=== PATIENT | female | born 2005 | race Caucasian/White ===

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

== ENCOUNTER → 2024-12-05 | Outpatient (CLI) | payer MEDICAID, SELFPAY ==
--- NOTE | 2024-12-05 15:30 | MRI_ITS ---
PROCEDURE: LOWER EXT JOINT ONLY (ROUTINE) 12/05/2024 REASON FOR EXAM: EVAL FOR MEDIAL MENISCUS TEAR TECHNIQUE: Procedure Code: MRILEJ Modality: MR Procedure: LOWER EXT JOINT ONLY (ROUTINE) Multiplanar and multisequence images were obtained without IV contrast administration. COMPARISON: 07-Nov-2024 CR FINDINGS: The posterior horn of the medial meniscus shows linear high signal reaching its meniscocapsular attachment and not interrupting the articular surfaces. Intact lateral meniscus. The anterior and posterior cruciate ligaments are intact. The medial and lateral collateral ligaments are intact. Intact quadriceps and patellar tendons. The medial and lateral patellar retinaculi are intact. Minimal knee joint effusion. Pes anserinus bursa is noted. Normal MR appearance of the rest of the keya-articular musculature with preserved inter-muscular fat planes. No fractures or marrow edema/contusion. No marrow infiltrative lesions. MRI/Lower Ext Joint Only (Routine) IMPRESSION: Grade II signal of the posterior horn of the medial meniscus. Minimal knee joint effusion. Pes anserinus bursa is noted. [facility] [id number]
== END | disposition home or self-care (01) ==
LOC: MRI 15:29
PROVIDERS: Referring Provider Orthopaedic Surgery Sports Medicine; Visit Provider Orthopaedic Surgery Sports Medicine
DX: M25.562 Pain in left knee (principal)
CPT/HCPCS: 73721

== ENCOUNTER 2024-12-31 10:11 | Day surgery (SDC) | payer MEDICAID, SELFPAY ==
--- NOTE | 2024-12-25 17:06 | PAT.ANE_ITS ---
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 When Was Last Pacemaker Check QUESTION #4 FULL TEXT: You/Your Family Experience fever (hyperthermia) with Anesthesia Last Oral Intake Last Oral intake: Last Oral Intake NPO since Meds taken in AM with sips of water? Meds patient instructed to take am of surgery PONV PONV - lithographic retoucher apprentice: PONV - lithographic retoucher apprentice Female Yes 12/25/24 14:13 HX of Motion Sickness No 12/25/24 14:13 HX of N/V After Surgery No 12/25/24 14:13 Non-Smoker No 12/25/24 14:13 Duration of Surgery greater Yes 12/25/24 14:13 than 60 minutes Number of Risk Factors 2 12/25/24 14:13 PONV Score Moderate Risk 12/25/24 14:13 Height & Weight Height & Weight: Anesthesia: Height & Weight Height 5 ft 2 in 12/11/24 15:41 Respiratory Assessment Respiratory Assessment - lithographic retoucher apprentice: Respiratory Tract Infection Hx - lithographic retoucher apprentice Hx Respiratory Tract Infection No 12/25/24 14:13 STOP Sleep Apnea STOP Sleep Apnea - lithographic retoucher apprentice: STOP Sleep Apnea - lithographic retoucher apprentice Hx Hypertension No 12/25/24 14:13 Hx Sleep Apnea No 12/25/24 14:13 CPAP BIPAP Do you snore loudly (louder No 12/25/24 14:13 than talking or can be heard Do you often feel tired/ No 12/25/24 14:13 fatigued/ sleepy during daytime? Has anyone observed you stop No 12/25/24 14:13 breathing during sleep? STOP Results Negative 12/25/24 14:13 QUESTION #5 FULL TEXT : Do you snore loudly (louder than talking or can be heard through closed doors)? 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 Specify any problems Hx of Preganancy in last 3 No 12/25/24 14:13 Months Nurse Filling Out Transfusion [email or web address] 12/25/24 14:13 & Questions: Date: 12/25/24 12/25/24 14:13 Time: 14:16 12/25/24 14:13 Patient unable to answer at this time (ie. confused, unrespo /Reproduction History /Reproductive History - lithographic retoucher apprentice: /Reproductive Hx- lithographic retoucher apprentice Hx Now No 12/25/24 14:13 Gestational Age (in weeks): EDC: Hx Hx Para Hx Section SAB No 12/25/24 14:13 Does the father of the baby or his family experience fever w Father of the baby Malignant Hypertension history comment [facility] Medical History (Updated 12/25/24 @ 14:20 by Davi Forde) hemorrhage Wears glasses Smoker Marijuana use Anemia History of Holter monitoring Tear of medial meniscus of left knee Left knee pain Contusion of left wrist Contusion of left hand Staph infection Home Medications ?Medication ?Instructions ?Recorded ?Last Taken ?Type NK 11/07/24 Unknown History Allergy/AdvReac Type Severity Reaction Status Date / Time No Known Allergies Allergy Verified 12/25/24 14:13 Social History Smoking Status: Current every day smoker tobacco type: e-cigarettes alcohol intake: never Audit: Pertinent Findings Pertinent Findings EKG Perinent findings: September 15, 2022. Sinus bradycardia at 59 bpm. Additional pertinent findings: Holter report. March 09, 2023. Overall rhythm is sinus rhythm with periods of sinus arrhythmia. Atrial ectopy is less than 1%. No ventricular ectopy noted. 2 patient symptomatic events recorded the first 1 was slight heart racing while the patient was tachycardic between 97 to 103 bpm. The second event was racing heart, chest pain and lightheadedness but unable to view due to device failure. Recommendation Anesthesia Recommendation Anesthesia recommendation: OPTIMIZED for anesthesia
[2024-12-31] VITALS (10 sets, daily range): BP systolic 104–119; BP diastolic 58–77; PULSE 55–73; RESP 12–18; TEMP 36.4–36.8; O2SAT 98–100; BMI 18.5
[2024-12-31 10:36] LABS: Internal QC Validated? YES +Cl - CLEAR BKGD; Pregnancy, Urine Negative Negative; Record Kit Lot#,Urine Preg 0000980607
[2024-12-31] MEDS: Lactated Ringers 1,000 ML 15 ML IV (10:40)
--- NOTE | 2024-12-31 10:45 | PRE.ANES_ITS ---
ASA Classification* ASA Classification ASA Classification: 2 Assessment & Plan Anesthesia* Anesthesia Assessment Anesthesia Assessment: Discussed sedation and/or anesthesia options, risks, benefits, and alternatives with patient/parents/legal guardian/POA. Questions invited. The patient/parents/legal guardian/POA seems to understand and agrees to proceed with anesthesia plan. Reviewed the physical assessment, medical history, allergy history and patient home medications list prior to surgery/procedure/anesthetic and documented any changes. Performed airway and anesthesia risk assessments. Anesthesia Type Anesthesia Type: General History Source History Obtained from:: Patient and Chart Anesthesia Focused Assessment* Temperature: 97.7 F Pulse Rate: 73 Blood Pressure: 119/77 Respiratory Rate: 12 Pulse Ox: 99 Oxygen Delivery Method: Room Air Airway Assessment Mouth opens: >3 cm Mallampati Score: I Teeth Condition: Loose (Tooth #8 is loose. Also chipped. Rest of the teeth are tight.) Neck Range of motion (ROM): Full ROM Labs Anesthesia Preop lab: CBC WBC, (4.5-13.0) 9.2 K/mm3 09/15/22, 16:05 RBC, (4.1-4.8) 5.09 M/mm3 H 09/15/22, 16:05 Hgb, (12.0-15.0) 14.7 g/dL 09/15/22, 16:05 Hct, (37-46) 45.2 % 09/15/22, 16:05 Plt Count, (150-450) 213 K/mm3 09/15/22, 16:05 CHEMISTRY Potassium, (3.5-5.1) 3.5 mmol/L 09/15/22, 16:05 Sodium, (136-145) 137 mmol/L 09/15/22, 16:05 BUN, (7-18) 5 mg/dL L 09/15/22, 16:05 Creatinine, (0.55-1.02) 0.80 mg/dL 09/15/22, 16:05 Glucose, (74-106) 84 mg/dL 09/15/22, 16:05 TSH, (0.358-3.74) 0.97 uIU/mL 03/04/19, 10:07 COAG HCG, Quant, (1-3) 228 mIU/mL H 09/15/22, 16:05 Urine Test Negative Negative Today, 10:18 Pre-Assessment Diagnosis/Proposed Procedure Planned Operative Procedure(s): LEFT KNEE ARTHOSCOPY, MEDIAL MENISCUS REPIAR Anesthesia History 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 When Was Last Pacemaker Check QUESTION #4 FULL TEXT: You/Your Family Experience fever (hyperthermia) with Anesthesia Last Oral Intake Last Oral intake: Last Oral Intake NPO since 23:00 12/31/24 10:31 Meds taken in AM with sips of No 12/31/24 10:31 water? Meds patient instructed to take am of surgery PONV PONV - statement distribution clerk: PONV - statement distribution clerk Female Yes 12/25/24 14:13 HX of Motion Sickness No 12/25/24 14:13 HX of N/V After Surgery No 12/25/24 14:13 Non-Smoker No 12/25/24 14:13 Duration of Surgery greater Yes 12/25/24 14:13 than 60 minutes Number of Risk Factors 2 12/25/24 14:13 PONV Score Moderate Risk 12/25/24 14:13 Height & Weight Height & Weight: Anesthesia: Height & Weight Height 5 ft 2 in 12/31/24 10:31 Weight: 46 kg 12/31/24 10:31 Body Mass Index (BMI) 18.5 12/31/24 10:31 Respiratory Assessment Respiratory Assessment - statement distribution clerk: Respiratory Tract Infection Hx - statement distribution clerk Hx Respiratory Tract Infection No 12/25/24 14:13 STOP Sleep Apnea STOP Sleep Apnea - statement distribution clerk: STOP Sleep Apnea - statement distribution clerk Hx Hypertension No 12/25/24 14:13 Hx Sleep Apnea No 12/25/24 14:13 CPAP BIPAP Do you snore loudly (louder No 12/25/24 14:13 than talking or can be heard Do you often feel tired/ No 12/25/24 14:13 fatigued/ sleepy during daytime? Has anyone observed you stop No 12/25/24 14:13 breathing during sleep? STOP Results Negative 12/25/24 14:13 QUESTION #5 FULL TEXT : Do you snore loudly (louder than talking or can be heard through closed doors)? 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 Specify any problems Hx of Preganancy in last 3 No 12/25/24 14:13 Months Nurse Filling Out Transfusion [email or web address] 12/25/24 14:13 & Questions: Date: 12/25/24 12/25/24 14:13 Time: 14:16 12/25/24 14:13 Patient unable to answer at this time (ie. confused, unrespo /Reproduction History /Reproductive History - statement distribution clerk: /Reproductive Hx- statement distribution clerk Hx Now No 12/25/24 14:13 Gestational Age (in weeks): EDC: Hx Hx Para Hx Section SAB No 12/25/24 14:13 Does the father of the baby or his family experience fever w Father of the baby Malignant Hypertension history comment Active Medications Active Medications: Current Medications Generic Name Dose Route Start Last Admin Trade Name Freq PRN Reason Stop Dose Admin Lactated Ringer's 1,000 mls @ 15 mls/hr 12/31/24 10:30 12/31/24 10:40 IV 15 mls/hr .Q48H MARY Administration PFSH Medical History (Updated 12/31/24 @ 10:[address] Gus Beth MD) Vaginal delivery hemorrhage Wears glasses Smoker Marijuana use Anemia History of Holter monitoring Tear of medial meniscus of left knee Left knee pain Contusion of left wrist Contusion of left hand Staph infection Home Medications ?Medication ?Instructions ?Recorded ?Last Taken ?Type NK 11/07/24 Unknown History Allergy/AdvReac Type Severity Reaction Status Date / Time No Known Allergies Allergy Verified 12/31/24 10:31 Social History Smoking Status: Current every day smoker tobacco type: e-cigarettes alcohol intake: never Review of Systems (Anesthesia) ROS Narrative System reviewed and no additional complaints, except as documented.
--- OUTSIDE RECORDS SUMMARY | 2024-12-31 11:37 | XMS RPT_ITS | CCD ---
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 Artery Peripheral Artery AMOUNT GIVEN (1/4, 1/2, 3/4 or full unit) WAS THERE A REACTION TO THE TRANSFUSION? Yes... No... If so, notify the physician and the lab immediately, and initiate a Blood Transfusion Reaction form. COMPLETE FORMS ENTIRELY. KEEP CARDBOARD COPY ATTACHED TO UNIT. PLACE WHITE COPY ON CHART. RETURN YELLOW COPY TO LAB [facility] UPON COMPLETION OF TRANSFUSION. Performed By: #### 2 [id number] #### [facility],[address] [place] [address] Component [facility] Normal [facility] Comment on above: Performed By: #### 2 [id number] #### [facility],[address] [place] [address] Donor's ABO/Rh Positive [facility] Comment on above: Performed By: #### 2 37281 #### [facility],[address] [place] [address] Donor's Unit No [id number] [facility] Comment on above: Performed By: #### 2 50437 #### [facility],[address] [place] [address] Pt's ABO/Rh Positive [facility] Comment on above: Performed By: #### 2 17911 #### [facility],[address] [place] [address] Unit Exp Date 21 JUN 2023 [facility] Comment on above: Performed By: #### 2 23561 #### [place] [address] BB CROSSMATCH ADDITIONAL UNI Ton 05-31-2023 BB CROSSMATCH ADDITIONAL UNIT [facility] Comment on above: Result Comment: [id number] REQUEST FOR BLOOD OR BLOOD COMPONENT UNIT #_3 05/31/23.1815.AEL. Performed By: #### 2 05177 #### [facility],[address] [place] [address] Compatibility COMPATIBLE [facility] Comment on above: Result Comment: { Pt 's BB ID # [id number] Transfusion comments I have confirmed the above required items at the time of unit issue: Issuing Tech ........................ Date/Time .................. ==== PT ID VERIFIED AT BEDSIDE PRIOR TO BLOOD ADMINISTRATION PT ID VERIFIED AND DOCUMENTED BY TWO NURSES PT Name same on unit tag,BB ID Bracelet, and blood administration form Verify PT name by asking to state name(if poss.) Pt's MR Number on unit tag is the same as BB ID Bracelet and admin form Verify Pt's ABO Group/Rh from admin form, and unit tag Verify unit number from unit and blood administration form Informed consent obtained? I have checked the above listed items and there were no discrepancies #1 RN signature .................... Date/Time .................. #2 RN signature .................... Date/Time .................. ==== RECORD OF PATIENT'S RESPONSE Date/Time Prior to transfusion ......... Start of transfusion ......... 15 minute check ......... Blood complete/DC ......... SITE: Central Vein Peripheral Vein Central Artery Peripheral Artery [place] GIVEN (1/4, 1/2, 3/4 or full unit) WAS THERE A REACTION TO THE TRANSFUSION? Yes... No... If so, notify the physician and the lab immediately, and initiate a Blood Transfusion Reaction form. COMPLETE FORMS ENTIRELY. KEEP CARDBOARD COPY ATTACHED TO UNIT. PLACE WHITE COPY ON CHART. RETURN YELLOW COPY TO LAB [facility] UPON COMPLETION OF TRANSFUSION. Performed By: #### 2 25608 #### [facility],[address] [place] [address] Component [facility] Normal [facility] Comment on above: Performed By: #### 2 78303 #### [facility],[address] [place] [address] Donor's ABO/Rh Negative Normal [facility] Comment on above: Performed By: #### 2 04933 #### [facility],[address] [place] [address] Donor's Unit No [id number] Normal [facility] Comment on above: Performed By: #### 2 04033 #### [facility],[address] [place] [address],[facility] [address] Pt's ABO/Rh Positive Normal [facility] Comment on above: Performed By: #### 2 95454 #### [facility],[address] [place] [address] Unit Exp Date 06-20-23 Normal [facility] Comment on above: Performed By: #### 2 20469 #### [facility],[address] [place] [address] BB CROSSMATCH ADDITIONAL UNIT Normal [facility] Comment on above: Result Comment: [id number] REQUEST FOR BLOOD OR BLOOD COMPONENT UNIT #_2 05/31/23.0547.TR . Performed By: #### 2 59113 #### [facility],[address] [place], [place] [address] Compatibility COMPATIBLE Normal [facility] Comment on above: Result Comment: { Pt 's BB ID # [id number] Transfusion comments I have confirmed the above required items at the time of unit issue: Issuing Tech ........................ Date/Time .................. ==== PT ID VERIFIED AT BEDSIDE PRIOR TO BLOOD ADMINISTRATION PT ID VERIFIED AND DOCUMENTED BY TWO NURSES PT Name same on unit tag,BB ID Bracelet, and blood administration form Verify PT name by asking to state name(if poss.) Pt's MR Number on unit tag is the same as BB ID Bracelet and admin form Verify Pt's ABO Group/Rh from admin form, and unit tag Verify unit number from unit and blood administration form Informed consent obtained? I have checked the above listed items and there were no discrepancies #1 RN signature .................... Date/Time .................. #2 RN signature .................... Date/Time .................. ==== RECORD OF PATIENT'S RESPONSE Date/Time Prior to transfusion ......... Start of transfusion ......... 15 minute check ......... Blood complete/DC ......... SITE: Central Vein Peripheral Vein Central Artery Peripheral Artery [place] GIVEN (1/4, 1/2, 3/4 or full unit) WAS THERE A REACTION TO THE TRANSFUSION? Yes... No... If so, notify the physician and the lab immediately, and initiate a Blood Transfusion Reaction form. COMPLETE FORMS ENTIRELY. KEEP CARDBOARD COPY ATTACHED TO UNIT. PLACE WHITE COPY ON CHART. RETURN YELLOW COPY TO LAB [facility] UPON COMPLETION OF TRANSFUSION. Performed By: #### 2 19657 #### [facility],[address] [place] [address] Component [facility] Normal [facility] Comment on above: Performed By: #### 2 01400 #### [facility],[address] [place] [address] Donor's ABO/Rh Positive Normal [facility] Comment on above: Performed By: #### 2 38375 #### [facility],[address] [place] [address] Donor's Unit No [id number] Normal [facility] Comment on above: Performed By: #### 2 96706 #### [facility],[address] [place] [address] Pt's ABO/Rh Positive Normal [facility] Comment on above: Performed By: #### 2 66196 #### [facility],[address] [place] [address] Unit Exp Date 26 JUN 2023 Normal [facility] Comment on above: Performed By: #### 2 41729 #### [facility],[address] [place] [address] CBC + DIFFon 05-31-2023 BANDS 1 % Normal 0 - 5 [facility] Comment on above: Performed By: #### 2 96033 #### [facility],[address] [place] [address] Baso # 0.05 x10EE3/UL Normal 0.00 - 0.10 [facility] Comment on above: Performed By: #### 2 45011 #### [facility],[address] [place] [address] Basophils/100 WBC (Bld) 0.2 % Normal 0.0 - 2.0 [facility] Comment on above: Performed By: #### 2 35556 #### [facility],[address] [place] [address] CBC + DIFF Normal [facility] Comment on above: Result Comment: CBC- COMPLETE BLOOD COUNT Performed By: #### 2 86272 #### [facility],[address] [place] [address] CELL COUNT 100 Normal [facility] Comment on above: Performed By: #### 2 97912 #### [facility],[address] [place] [address] EO # 0.16 x10EE3/UL Normal 0.00 - 0.50 [facility] Comment on above: Performed By: #### 2 87866 #### [facility],[address] [place] [address] Eosinophils/100 WBC (Bld) 0.8 % Normal 0.0 - 7.0 [facility] Comment on above: Performed By: #### 2 85741 #### [facility],[address] [place] [address] Erythrocyte distribution width (RBC) [Ratio] 16.4 % High 12.0 - 15.6 [facility] Comment on above: Performed By: #### 2 17479 #### [facility],[address] [place] [address] Hematocrit (Bld) [Volume fraction] 25.5 % Low 34.0 - 46.0 [facility] Comment on above: Performed By: #### 2 85270 #### [facility],[address] [place] [address] Hemoglobin (Bld) [Mass/Vol] 8.4 g/dL Low 12.0 - 16.0 [facility] Comment on above: Result Comment: REPE ATED Performed By: #### 2 46356 #### [facility],[address] [place], [place] [id number] Lymph # 3.49 x10EE3/UL High 0.80 - 2.80 [facility] Comment on above: Performed By: #### 2 87949 #### [facility],[address] [place] [address] Lymphocytes/100 WBC (Bld) 18.5 % Low 20.0 - 45.0 [facility] Comment on above: Performed By: #### 2 13913 #### [facility],[address] [place] [address] Lymphocytes/100 WBC (Bld) 17 % Low 20 - 40 [facility] Comment on above: Performed By: #### 2 87293 #### [facility],[address] [place] [address] MANUAL DIFF SEE BELOW Normal [facility] Comment on above: Performed By: #### 2 43271 #### [facility],[address] [place] [address] MCH (RBC) [Entitic mass] 26 pg Low 27 - 33 [facility] Comment on above: Performed By: #### 2 59297 #### [facility],[address] [place] [address] MCHC 33 X10 3 Normal 32 - 36 [facility] Comment on above: Performed By: #### 2 45045 #### [facility],[address] [place] [address] MCV (RBC) [Entitic vol] 80 fL Normal 80 - 99 [facility] Comment on above: Performed By: #### 2 99653 #### [facility],[address] [place] [address] [place] # 0.74 x10EE3/UL Normal 0.20 - 1.00 [facility] Comment on above: Performed By: #### 2 96662 #### [facility],[address] [place] [address] MONOS 6 % Normal 0 - 8 [facility] Comment on above: Performed By: #### 2 49681 #### [facility],[address] [place] [address] MONOS % 3.9 % Normal 0.0 - 10.0 [facility] Comment on above: Performed By: #### 2 78393 #### [facility],[address] [place] [address] Morphology Sekou (Bld) [Interp] SEE BELOW Normal [facility] Comment on above: Performed By: #### 2 28800 #### [facility],[address] [place] [address] Neut # 14.45 x10EE3/UL High 1.50 - 7.10 [facility] Comment on above: Performed By: #### 2 84611 #### [facility],[address] [place] [address] Neutrophils/100 WBC (Bld) 76.5 % High 46.0 - 76.0 [facility] Comment on above: Performed By: #### 2 36993 #### [facility],[address] [place] [address] NRBC 1 /100 Normal [facility] Comment on above: Performed By: #### 2 73065 #### [facility],[address] [place] [address] PLATELET 235 x10EE3/UL Normal 150 - 450 [facility] Comment on above: Performed By: #### 2 51709 #### [facility],[address] [place] [address] Platelet mean volume (Bld) [Entitic vol] 8.7 fL Normal 6.6 - 10.5 [facility] Comment on above: Result Comment: AUTO MATED DIFFERENTIAL Performed By: #### 2 65242 #### [facility],[address] [place] [address] POLYCHROM 1+ Normal [facility] Comment on above: Performed By: #### 2 85774 #### [facility],[address] [place] [address] RBC 3.17 x 10EE6/UL Low 4.10 - 5.30 [facility] Comment on above: Performed By: #### 2 26670 #### [facility],[address] [place] [address] SEGS 76 % High 50 - 70 [facility] Comment on above: Performed By: #### 2 82705 #### [facility],[address] [place] [address] WBC 18.9 x 10EE3/UL High 4.5 - 10.8 [facility] Comment on above: Performed By: #### 2 38403 #### [facility],[address] [place] [address] Other 1+ DACROCYTES Normal [facility] Comment on above: Performed By: #### 2 05316 #### [facility],[address] [place] [address] Baso # 0.05 x10EE3/UL Normal 0.00 - 0.10 [facility] Comment on above: Performed By: #### 2 24877 #### [facility],[address] [place] [address] Basophils/100 WBC (Bld) 0.3 % Normal 0.0 - 2.0 [facility] Comment on above: Performed By: #### 2 08740 #### [facility],[address] [place] [address] CBC + DIFF Normal [facility] Comment on above: Result Comment: CBC- COMPLETE BLOOD COUNT Performed By: #### 2 88030 #### [facility],[address] [place] [address] EO # 0.16 x10EE3/UL Normal 0.00 - 0.50 [facility] Comment on above: Performed By: #### 2 46966 #### [facility],[address] [place] [address] Eosinophils/100 WBC (Bld) 0.8 % Normal 0.0 - 7.0 [facility] Comment on above: Performed By: #### 2 63805 #### [facility],[address] [place] [address] Erythrocyte distribution width (RBC) [Ratio] 15.8 % High 12.0 - 15.6 [facility] Comment on above: Performed By: #### 2 97961 #### [facility],[address] [place] [address] Hematocrit (Bld) [Volume fraction] 16.9 % Critically low 34.0 - 46.0 [facility] Comment on above: Result Comment: { CA LLED TO LORRAINE/OB { READ BACK BY LORRAINE TO TRR Performed By: #### 2 29106 #### [facility],[address] [place] [address] Hemoglobin (Bld) [Mass/Vol] 5.6 g/dL Critically low 12.0 - 16.0 [facility] Comment on above: Result Comment: { CA LLED TO LORRAINE/OB { READ BACK BY LORRAINE TO TRR Performed By: #### 2 33222 #### [facility],[address] [place] [address] HYPOCHROM 2+ Normal [facility] Comment on above: Performed By: #### 2 01125 #### [facility],[address] [place] [address] Lymph # 3.83 x10EE3/UL High 0.80 - 2.80 [facility] Comment on above: Performed By: #### 2 97561 #### [facility],[address] [place] [address] Lymphocytes/100 WBC (Bld) 20.0 % Normal 20.0 - 45.0 [facility] Comment on above: Performed By: #### 2 70648 #### [facility],[address] [place], [place] [address] Lymphocytes/100 WBC (Bld) 17 % Low 20 - 40 [facility] Comment on above: Performed By: #### 2 72990 #### [facility],[address] [place] [address] MANUAL DIFF SEE BELOW Normal [facility] Comment on above: Performed By: #### 2 57172 #### [facility],[address] [place] [address] MCH (RBC) [Entitic mass] 25 pg Low 27 - 33 [facility] Comment on above: Performed By: #### 2 82330 #### [facility],[address] [place] [address] MCHC 33 X10 3 Normal 32 - 36 [facility] Comment on above: Performed By: #### 2 03109 #### [facility],[address] [place] [address] MCV (RBC) [Entitic vol] 77 fL Low 80 - 99 [facility] Comment on above: Performed By: #### 2 13668 #### [facility],[address] [place] [address] MICROCYTES 2+ Normal [facility] Comment on above: Performed By: #### 2 71249 #### [facility],[address] [place] [address] [place] # 0.98 x10EE3/UL Normal 0.20 - 1.00 [facility] Comment on above: Performed By: #### 2 68989 #### [facility],[address] [place] [address] MONOS 1 % Normal 0 - 8 [facility] Comment on above: Performed By: #### 2 38133 #### [facility],[address] [place] [address] MONOS % 5.1 % Normal 0.0 - 10.0 [facility] Comment on above: Performed By: #### 2 64711 #### [facility],[address] [place] [address] Morphology Sekou (Bld) [Interp] SEE BELOW Normal [facility] Comment on above: Performed By: #### 2 68290 #### [facility],[address] [place] [address]46 Neut # 14.14 x10EE3/UL High 1.50 - 7.10 [facility] Comment on above: Performed By: #### 2 92360 #### [facility],[address] [place] [address] Neutrophils/100 WBC (Bld) 73.8 % Normal 46.0 - 76.0 [facility] Comment on above: Performed By: #### 2 50567 #### [facility],[address] [place] [address] PLATELET 246 x10EE3/UL Normal 150 - 450 [facility] Comment on above: Performed By: #### 2 90521 #### [facility],[address] [place] [address] Platelet mean volume (Bld) [Entitic vol] 8.5 fL Normal 6.6 - 10.5 [facility] Comment on above: Result Comment: AUTO MATED DIFFERENTIAL Performed By: #### 2 23501 #### [facility],[address] [place] [address] PLT EST NORMAL Normal [facility] Comment on above: Performed By: #### 2 21707 #### [facility],[address] [place], [place] [id number] RBC 2.19 x 10EE6/UL Low 4.10 - 5.30 [facility] Comment on above: Performed By: #### 2 88486 #### [facility],[address] [place], [place] [id number] SEGS 82 % High 50 - 70 [facility] Comment on above: Performed By: #### 2 31117 #### [facility],[address] [place] [address] WBC 19.2 x 10EE3/UL High 4.5 - 10.8 [facility] Comment on above: Performed By: #### 2 18456 #### [facility],[address] [place] [address] BB TYPE & SCREENon 4 ABO B Normal [facility] Comment on above: Performed By: #### 2 39671 #### [facility],[address] [place] [address] ANTIBODY SCR Negative Normal [facility] Comment on above: Performed By: #### 2 93076 #### [facility],[address] [place] [address] BB TYPE & SCREEN Normal [facility] Comment on above: Result Comment: TYPE , Rh, AND SCREEN Performed By: #### 2 41342 #### [facility],[address] [place] [address] Rh Nom (Bld) Positive Normal [facility] Comment on above: Performed By: #### 2 06479 #### [facility],[address] [place] [address] CBC + DIFFon 05-30-2023 Baso # 0.08 x10EE3/UL Normal 0.00 - 0.10 [facility] Comment on above: Performed By: #### 2 87490 #### [facility],[address] [place] [address] Basophils/100 WBC (Bld) 0.5 % Normal 0.0 - 2.0 [facility] Comment on above: Performed By: #### 2 88184 #### [facility],[address] [place] [address] CBC + DIFF Normal [facility] [place] Comment on above: Result Comment: CBC- COMPLETE BLOOD COUNT Performed By: #### 2 [id number] #### [facility] [place] [facility],[address] [place] [address] EO # 0.06 x10EE3/UL Normal 0.00 - 0.50 [facility] Comment on above: Performed By: #### 2 72105 #### [facility] [place] [facility],[address] [place] [address] Eosinophils/100 WBC (Bld) 0.4 % Normal 0.0 - 7.0 [facility] Comment on above: Performed By: #### 2 34920 #### [facility],[address] [place] [address] Erythrocyte distribution width (RBC) [Ratio] 15.6 % Normal 12.0 - 15.6 [facility] Comment on above: Performed By: #### 2 60574 #### [facility],[address] [place] [address] Hematocrit (Bld) [Volume fraction] 29.4 % Low 34.0 - 46.0 [facility] Comment on above: Performed By: #### 2 40360 #### [facility],[address] [place] [address] Hemoglobin (Bld) [Mass/Vol] 9.6 g/dL Low 12.0 - 16.0 [facility] Comment on above: Performed By: #### 2 07689 #### [facility],[address] [place], [place] [id number] Lymph # 2.83 x10EE3/UL High 0.80 - 2.80 [facility] Comment on above: Performed By: #### 2 98822 #### [facility],[address] [place], [place] [id number] Lymphocytes/100 WBC (Bld) 19.2 % Low 20.0 - 45.0 [facility] Comment on above: Performed By: #### 2 17432 #### [facility],[address] [place] [address] MANUAL DIFF N/A Normal [facility] Comment on above: Performed By: #### 2 84321 #### [facility],[address] [place], [place] [id number] MCH (RBC) [Entitic mass] 25 pg Low 27 - 33 [facility] Comment on above: Performed By: #### 2 05858 #### [facility],[address] [place] [address] MCHC 33 X10 3 Normal 32 - 36 [facility] Comment on above: Performed By: #### 2 18881 #### [facility],[address] [place], [place] [id number] MCV (RBC) [Entitic vol] 76 fL Low 80 - 99 [facility] Comment on above: Performed By: #### 2 88044 #### [facility],[address] [place] [address] [place] # 0.90 x10EE3/UL Normal 0.20 - 1.00 [facility] Comment on above: Performed By: #### 2 07522 #### [facility],[address] [place] [address] MONOS % 6.1 % Normal 0.0 - 10.0 [facility] Comment on above: Performed By: #### 2 33007 #### [facility],[address] [place] [address] 29204 Morphology Sekou (Bld) [Interp] N/A Normal [facility] Comment on above: Performed By: #### 2 52695 #### [facility],[address] [place] [address] Neut # 10.92 x10EE3/UL High 1.50 - 7.10 [facility] Comment on above: Performed By: #### 2 14193 #### [facility],[address] [place] [address] Neutrophils/100 WBC (Bld) 73.8 % Normal 46.0 - 76.0 [facility] Comment on above: Performed By: #### 2 70317 #### [facility],[address] [place] [address] 75860 PLATELET 278 x10EE3/UL Normal 150 - 450 [facility] Comment on above: Performed By: #### 2 60906 #### [facility],[address] [place] [address] 21510 Platelet mean volume (Bld) [Entitic vol] 8.6 fL Normal 6.6 - 10.5 [facility] Comment on above: Result Comment: AUTO MATED DIFFERENTIAL Performed By: #### 2 57900 #### [facility],[address] [place] [address] 65256 RBC 3.86 x 10EE6/UL Low 4.10 - 5.30 [facility] Comment on above: Performed By: #### 2 02000 #### [facility],[address] [place] [address] 19215 WBC 14.8 x 10EE3/UL High 4.5 - 10.8 [facility] Comment on above: Performed By: #### 2 77655 #### [facility],[address] [place] [address] 90266 FERRITINon 05-30-2023 Ferritin [Mass/Vol] 8 ng/mL Normal 8 - 388 [facility] Comment on above: Performed By: #### 2 28371 #### [facility] [place] [facility],[address] [place] [address] 25833 IRON AND TIBCon 05-30-2023 %SATURATION 74 % Normal [facility] Comment on above: Performed By: #### 2 08192 #### [facility],[address] [place] [address] 12196 Iron [Mass/Vol] 528 ug/dL High 50 - 170 [facility] Comment on above: Performed By: #### 2 56149 #### [facility],[address] [place] [address] 91615 TIBC 709 ug/dl High 250 - 450 [facility] Comment on above: Performed By: #### 2 98767 #### [facility],[address] [place] [address] 33225 UIBC 181 ug/dL Normal 155 - 355 [facility] Comment on above: Performed By: #### 2 89175 #### [facility],[address] [place], [place] [id number] ACTIM PROMon 05-08-2023 ACTIM PROM Negative Normal NORMAL: NEGATIVE [facility] Comment on above: Performed By: #### 2 34831 #### [facility],[address] [place] [address] EXTERNAL QC DONE? YES Normal [facility] Comment on above: Result Comment: Acti m PROM is a rapid immunoassay that specifically detects Insulin-like Growth Factor Binding Protein-1 (IGFBP-1). IGFBP-1 levels in amniotic fluid rise in early and remain high until term. When the membranes are ruptured, IGFBP-1 is detectable in a vaginal sample. Performed By: #### 2 33558 #### [facility],[address] [place] [address] INTERNAL NEG QC PASS Normal [facility] Comment on above: Performed By: #### 2 27073 #### [facility],[address] [place] [address] INTERNAL POS QC PASS Normal [facility] Comment on above: Performed By: #### 2 81681 #### [facility],[address] [place], [place] [id number] BB TYPE & SCREENon 4 ABO B Normal [facility] Comment on above: Performed By: #### 2 02772 #### [facility],[address] [place] [address] 54593 ANTIBODY SCR Negative Normal [facility] Comment on above: Performed By: #### 2 69300 #### [facility],[address] [place], [place] [id number] BB TYPE & SCREEN Normal [facility] Comment on above: Result Comment: TYPE , Rh, AND SCREEN Performed By: #### 2 13116 #### [facility],[address] [place] [address] Rh Nom (Bld) Positive Normal [facility] Comment on above: Performed By: #### 2 59841 #### [facility],[address] [place] [address] CBC + DIFFon 05-08-2023 Baso # 0.04 x10EE3/UL Normal 0.00 - 0.10 [facility] Comment on above: Performed By: #### 2 67252 #### [facility],[address] [place] [address] Basophils/100 WBC (Bld) 0.4 % Normal 0.0 - 2.0 [facility] Comment on above: Performed By: #### 2 36630 #### [facility],[address] [place] [address] CBC + DIFF Normal [facility] Comment on above: Result Comment: CBC- COMPLETE BLOOD COUNT Performed By: #### 2 62952 #### [facility],[address] [place] [address] EO # 0.07 x10EE3/UL Normal 0.00 - 0.50 [facility] Comment on above: Performed By: #### 2 25571 #### [facility],[address] [place] [address] Eosinophils/100 WBC (Bld) 0.8 % Normal 0.0 - 7.0 [facility] Comment on above: Performed By: #### 2 32930 #### [facility],[address] [place] [address] Erythrocyte distribution width (RBC) [Ratio] 14.9 % Normal 12.0 - 15.6 [facility] Comment on above: Performed By: #### 2 05228 #### [facility],[address],[place] [address] Hematocrit (Bld) [Volume fraction] 29.2 % Low 34.0 - 46.0 [facility] Comment on above: Performed By: #### 2 98259 #### [facility],[address] [place] [address] 21045 Hemoglobin (Bld) [Mass/Vol] 9.3 g/dL Low 12.0 - 16.0 [facility] Comment on above: Performed By: #### 2 93137 #### [facility],[address] [place], [place] [id number] Lymph # 2.54 x10EE3/UL Normal 0.80 - 2.80 [facility] Comment on above: Performed By: #### 2 21149 #### [facility],[address] [place], [place] [id number] Lymphocytes/100 WBC (Bld) 28.5 % Normal 20.0 - 45.0 [facility] Comment on above: Performed By: #### 2 17863 #### [facility],[address] [place] [address] 11926 MANUAL DIFF N/A Normal [facility] Comment on above: Performed By: #### 2 71717 #### [facility],[address] [place] [address] 45305 MCH (RBC) [Entitic mass] 25 pg Low 27 - 33 [facility] Comment on above: Performed By: #### 2 27886 #### [facility],[address] [place] [address] 79916 MCHC 32 X10 3 Normal 32 - 36 [facility] Comment on above: Performed By: #### 2 01090 #### [facility],[address] [place] [address] 53358 MCV (RBC) [Entitic vol] 78 fL Low 80 - 99 [facility] Comment on above: Performed By: #### 2 96444 #### [facility],[address] [place] [address] 88994 [place] # 0.50 x10EE3/UL Normal 0.20 - 1.00 [facility] Comment on above: Performed By: #### 2 29582 #### [facility],[address] [place] [address] MONOS % 5.6 % Normal 0.0 - 10.0 [facility] Comment on above: Performed By: #### 2 54432 #### [facility],[address] [place] [address] Morphology Sekou (Bld) [Interp] N/A Normal [facility] Comment on above: Performed By: #### 2 11228 #### [facility],[address] [place] [address] Neut # 5.77 x10EE3/UL Normal 1.50 - 7.10 [facility] Comment on above: Performed By: #### 2 21510 #### [facility],[address] [place] [address] Neutrophils/100 WBC (Bld) 64.6 % Normal 46.0 - 76.0 [facility] Comment on above: Performed By: #### 2 39983 #### [facility],[address] [place] [address] PLATELET 286 x10EE3/UL Normal 150 - 450 [facility] Comment on above: Performed By: #### 2 42654 #### [facility],[address] [place] [address] Platelet mean volume (Bld) [Entitic vol] 8.6 fL Normal 6.6 - 10.5 [facility] Comment on above: Result Comment: AUTO MATED DIFFERENTIAL Performed By: #### 2 58389 #### [facility],[address] [place] [address] RBC 3.75 x 10EE6/UL Low 4.10 - 5.30 [facility] Comment on above: Performed By: #### 2 11851 #### [facility],[address] [place] [address]1962 WBC 8.9 x 10EE3/UL Normal 4.5 - 10.8 [facility] Comment on above: Performed By: #### 2 14428 #### [facility],[address] [place] [address] 34336 GROUP B STREP BY PCR (POM)on 05-08-2023 GBS Negative Normal [facility] Comment on above: Result Comment: GROU P B STREPTOCOCCUS(GBS) THIS ASSAY HAS BEEN VALIDATED IN THE [facility] FOR USE WITH VAGINAL- RECTAL SWAB SPECIMENS. INTERPRETIVE DATA TEST RESULTS SHOULD BE INTERPRETED IN CONJUNCTION WITH OTHER LABORATORY AND CLINICAL DATA. A POSITIVE TEST RESULT FOR GROUP B STREPTOCOCCUS(GBS)INDICATES THAT BACTERIAL NUCLEIC ACIDS FROM GROUP B STREPTOCOCCUS(GBS)WERE DETECTED. A NEGATIVE TEST RESULT FOR THIS TEST MEANS THAT BACTERIAL NUCLEIC ACIDS FROM GROUP B STREPTOCOCCUS(GBS)WERE NOT PRESENT IN THE SPECIMEN ABOVE THE LIMIT OF DETECTION. WHEN DIAGNOSTIC TESTING IS NEGATIVE, THE POSSIBLILTY OF A FALSE NEGATIVE RESULT SHOULD BE CONSIDERED IN THE CONTEXT OF A PATIENT'S CLINICAL SIGNS AND SYMPTOMS CONSISTENT WITH GROUP B STREPTOCOCCUS(GBS). THERE IS A RISK OF FALSE NEGATIVE RESULTS DUE TO IMPROPERLY COLLECTED, TRANSPORTED, OR HANDLED SWAB SAMPLES. THERE IS A RISK OF FALSE NEGATIVE RESULTS DUE TO THE PRESENCE OF SEQUENCE VARIANTS IN THE TARGETS OF THE ASSAY, PROCEDURAL ERRORS, AMPLIFICATION INHIBITORS IN SAMPLES, OR INADEQUATE NUMBERS OF ORGANISM(S) FOR AMPLIFICATION. THERE IS A RISK OF FALSE POSITIVE RESULTS DUE TO POTENTIAL CROSS-CONTAMINATION BY TARGET ORGANISM(S), THEIR NUCLEIC ACID OR AMPLIFIED PRODUCT, OR FROM NON- SPECIFIC SIGNALS IN THE ASSAY. ADDITIONAL FOLLOW-UP TESTING BY CULTURE IS REQUIRED IF THE [place] GROUP B STREPTOCOCCUS(GBS)RESULT IS NEGATIVE AND CLINICAL SYMPTOMS PERSIST. Performed By: #### 2 56500 #### [facility],[address] [place] [address] 87805 URINALYSIS WITH MICROSCOPYon 05-08-2023 Amorphous NONE Normal [facility] Comment on above: Performed By: #### 2 86889 #### [facility],[address] [place] [address] Bacteria 2+ Normal [facility] Comment on above: Performed By: #### 2 08900 #### [facility],[address] [place] [address] 77275 Bilirubin Ql (U) Negative Normal NORMAL: NEGATIVE [facility] Comment on above: Performed By: #### 2 42484 #### [facility],[address] [place] [address] 08076 Casts NONE Normal [facility] Comment on above: Performed By: #### 2 02830 #### [facility],[address] [place] [address] 83501 Clarity (U) clear Normal NORMAL: CLEAR [facility] Comment on above: Performed By: #### 2 03569 #### [facility],[address] [place] [address] 69069 Color (U) yellow Normal NORMAL: YELLOW [facility] Comment on above: Performed By: #### 2 10633 #### [facility],[address] [place] [address] 81456 Crystals LM Nom (Urine sed) NONE Normal [facility] Comment on above: Performed By: #### 2 70395 #### [facility],[address] [place] [address] 26185 Epi Cells MODERATE Normal [facility] Comment on above: Performed By: #### 2 60342 #### [facility],[address] [place] [address] 21232 Glucose Ql (U) NORM Normal NORMAL: NORMAL [facility] Comment on above: Performed By: #### 2 06847 #### [facility],[address] [place] [address] 53740 Hemoglobin Ql (U) Negative Normal NORMAL: NEGATIVE [facility] Comment on above: Performed By: #### 2 78966 #### [facility],[address] [place] [address] 15028 Ketone 50 Abnormal NORMAL: NEGATIVE [facility] Comment on above: Performed By: #### 2 16525 #### [facility],[address] [place] [address] 06775 Leukocytes 25 Abnormal NORMAL: NEGATIVE [facility] Comment on above: Result Comment: URIN E MICROSCOPIC Performed By: #### 2 13079 #### [facility],[address] [place] [address] 35085 Mucous NONE Normal [facility] Comment on above: Performed By: #### 2 78305 #### [facility],[address] [place] [address] Nitrite Ql (U) Negative Normal NORMAL: NEGATIVE [facility] Comment on above: Performed By: #### 2 89839 #### [facility],[address] [place] [address] pH (U) 7 [pH] Normal NORMAL: 5.0-8.0 [facility] Comment on above: Performed By: #### 2 01261 #### [facility],[address] [place] [address] Protein Ql (U) 15 Abnormal NORMAL: NEGATIVE [facility] Comment on above: Performed By: #### 2 19329 #### [facility],[address] [place] [address] 51742 Rbc NONE Normal 0-3 / hpf [facility] Comment on above: Performed By: #### 2 21457 #### [facility],[address] [place] [address] Sp [place] 1.010 Normal NORMAL: 1.010-1.030 [facility] Comment on above: Performed By: #### 2 98920 #### [facility],[address] [place] [address] Specimen Type Clean catch Normal [facility] Comment on above: Performed By: #### 2 21186 #### [facility],[address] [place] [address] URINALYSIS WITH MICROSCOPY Normal [facility] Comment on above: Result Comment: URIN ALYSIS Performed By: #### 2 44140 #### [facility],[address] [place] [address] Urobilinog NORM Normal NORMAL: NORMAL [facility] Comment on above: Performed By: #### 2 55434 #### [facility],[address] [place], [place] [id number] Wbc 1-5 Normal 0-5 / hpf [facility] Comment on above: Performed By: #### 2 46999 #### [facility],[address] [place], [place] [id number] Yeast NONE Normal [facility] Comment on above: Performed By: #### 2 78633 #### [facility],[address] [place] [address] [facility] ()W/O NON [place] [address] Patient: LATOYA SOTELO Phone#: : 2005 Age: 17 Gender: F Pt. Type: Account: [id number] Location: [facility] Ordering: KENNETH WRIGHT Exam Date: 05/08/2023/11:05 Family Phys: Charge Code: [id number] Physician: Pondera Order #: [id number] Dose#: PROCEDURE: US BIOPYHSICAL PROFILE ()W/O NON COMPARISON: None. INDICATIONS: Cramping. TECHNIQUE: Complete sonographic examination for obstetrical and evaluation. FINDINGS: NUMBER: Single. POSITION: Vertex. AMNIOTIC FLUID VOLUME: Normal for age with MELINA of 11.1 cm. PLACENTA LOCATION: Fundal. ESTIMATED WEIGHT: 2655 grams/5 pounds 14 ounces HEART RATE: 125 bpm ABNORMALITIES/OTHER: None. CLINICAL GA: 37 weeks 0 days CLINICAL ISAC: May 29, 2023 ULTRASOUND GA: 35 weeks 5 days ULTRASOUND ISAC: June 07, 2023 BIOPHYSICAL PROFILE: MOVEMENTS: 2 BREATHIN TONE: 2 CARDIAC ACCEL: - AMNIOTIC FLUID: 2 CONCLUSION: 1. SL IUP 35 weeks 5 days, ISAC June 07, 2023 2. BPP 8/8 in 16 minutes. Dictated by: Jennifer Tubbs MD on 05/08/2023 at 16:17 Approved by: Jennifer Tubbs MD on 05/08/2023 at 16:20 Normal [facility] OB REPEATon 04-09-2023 OB REPEAT [place] [address] Patient: LATOYA SOTELO Phone#: : 2005 Age: 17 Gender: F Pt. Type: Out Account: [id number] Location: [facility] Ordering: KENNETH WRIGHT Exam Date: 04/09/2023/14:55 Family Phys: MARILEE JOHNSONSAJI Charge Code: [id number] Physician: Pondera Order #: [id number] Dose#: PROCEDURE: OB REPEAT ULTRASOUND, TRANSABDOMINAL COMPARISON: [facility], OB INITIAL >14 WEEKS, 01/10/2023, 14:01. INDICATIONS: Growth. TECHNIQUE: Complete sonographic examination for obstetrical and evaluation were completed by transabdominal ultrasound. FINDINGS: NUMBER: Single. POSITION: Vertex. AMNIOTIC FLUID VOLUME: Normal for age with MELINA of 10.7 cm. PLACENTA LOCATION: Posterior. BIPARIETAL DIAMETER: 33 weeks 6 days, 8.4 cm HEAD CIRCUMFERENCE: 33 weeks 5 days, 30.3 sent ABD CIRCUMFERENCE: 33 weeks 3 days, 29.4 cm FEMUR LENGTH: 34 weeks 0 days ,6.6 cm ESTIMATED WEIGHT: 2241 g +/- 363.2 g CERVICAL LENGTH: 3.0 cm HEART RATE: 132 bpm ABNORMALITIES/OTHER: Umbilical artery systolic/diastolic ratio 2.5, between the 25th and 50th percentile for 33 week gestation. CLINICAL GA: 32 weeks 6 days CLINICAL ISAC: 05/29/2023 ULTRASOUND GA: 33 weeks 5 days ULTRASOUND ISAC: 05/23/2023 CONCLUSION: 1. Single live intrauterine gestation overall demonstrating appropriate interval growth compared to prior ultrasound. Femur length/head circumference ratio minimally above expected range. Dictated by: Rachelle Matthews MD on 04/09/2023 at 16:59 Approved by: Rachelle Matthews MD on 04/09/2023 at 17:04 Normal [facility] BB ANTIBODY SCREENon 024 ANTIBODY SCR Negative Normal negative [facility] Comment on above: Performed By: #### 2 [id number] #### [facility],[address] [place], [place] [id number] POTASSIUMon 03-06-2023 Potassium [Moles/Vol] 3.8 mmol/L Normal 3.5 - 5.1 [facility] Comment on above: Performed By: #### 2 06970 #### [facility],[address] [place] [address] 18867 CBC + DIFFon 03-05-2023 Baso # 0.10 x10EE3/UL Normal 0.00 - 0.10 [facility] Comment on above: Performed By: #### 2 04156 #### [facility],[address] [place] [address] 59755 Basophils/100 WBC (Bld) 0.9 % Normal 0.0 - 2.0 [facility] Comment on above: Performed By: #### 2 13156 #### [facility],[address] [place] [address] 33341 CBC + DIFF Normal [facility] Comment on above: Result Comment: CBC- COMPLETE BLOOD COUNT Performed By: #### 2 73618 #### [facility],[address] [place] [address] 02062 EO # 0.30 x10EE3/UL Normal 0.00 - 0.50 [facility] Comment on above: Performed By: #### 2 67162 #### [facility],[address] [place] [address] 48185 Eosinophils/100 WBC (Bld) 2.5 % Normal 0.0 - 7.0 [facility] Comment on above: Performed By: #### 2 49500 #### [facility],[address] [place] [address] Erythrocyte distribution width (RBC) [Ratio] 13.2 % Normal 12.0 - 15.6 [facility] Comment on above: Performed By: #### 2 80376 #### [facility],[address] [place] [address] Hematocrit (Bld) [Volume fraction] 32.6 % Low 34.0 - 46.0 [facility] Comment on above: Performed By: #### 2 49340 #### [facility],[address] [place] [address] Hemoglobin (Bld) [Mass/Vol] 11.1 g/dL Low 12.0 - 16.0 [facility] Comment on above: Performed By: #### 2 50936 #### [facility],[address] [place] [address] Lymph # 2.40 x10EE3/UL Normal 0.80 - 2.80 [facility] Comment on above: Performed By: #### 2 69915 #### [facility],[address] [place] [address] Lymphocytes/100 WBC (Bld) 20.1 % Normal 20.0 - 45.0 [facility] Comment on above: Performed By: #### 2 44819 #### [facility],[address] [place], [place] [id number] MANUAL DIFF N/A Normal [facility] Comment on above: Performed By: #### 2 63936 #### [facility],[address] [place], [place] [id number] MCH (RBC) [Entitic mass] 30 pg Normal 27 - 33 [facility] Comment on above: Performed By: #### 2 84143 #### [place] [id number] MCHC 34 X10 3 Normal 32 - 36 [facility] Comment on above: Performed By: #### 2 93979 #### [facility],[address] [place] [address] MCV (RBC) [Entitic vol] 86 fL Normal 80 - 99 [facility] Comment on above: Performed By: #### 2 19245 #### [facility],[address] [place] [address] [place] # 0.80 x10EE3/UL Normal 0.20 - 1.00 [facility] Comment on above: Performed By: #### 2 85970 #### [facility],[address] [place] [address] MONOS % 6.6 % Normal 0.0 - 10.0 [facility] Comment on above: Performed By: #### 2 88051 #### [facility],[address] [place] [address] Morphology Sekou (Bld) [Interp] N/A Normal [facility] Comment on above: Result Comment: {CD] Performed By: #### 2 54298 #### [facility],[address] [place] [address] Neut # 8.50 x10EE3/UL High 1.50 - 7.10 [facility] Comment on above: Performed By: #### 2 79907 #### [facility],[address] [place] [address] Neutrophils/100 WBC (Bld) 69.9 % Normal 46.0 - 76.0 [facility] Comment on above: Performed By: #### 2 28995 #### [facility],[address] [place] [address] PLATELET 335 x10EE3/UL Normal 150 - 450 [facility] Comment on above: Performed By: #### 2 15686 #### [facility],[address] [place] [address] Platelet mean volume (Bld) [Entitic vol] 8.8 fL Normal 6.6 - 10.5 [facility] Comment on above: Result Comment: AUTO MATED DIFFERENTIAL Performed By: #### 2 73250 #### [facility],[address] [place] [address] RBC 3.77 x 10EE6/UL Low 4.10 - 5.30 [facility] Comment on above: Performed By: #### 2 95436 #### [facility],[address] [place] [address] WBC 12.1 x 10EE3/UL High 4.5 - 10.8 [facility] Comment on above: Performed By: #### 2 44808 #### [facility],[address] [place] [address] GLUCOSE CHALLENGE 50GM 1 DAVIDA Baldemar 03-05-2023 Glucose [Mass/Vol] 72 mg/dL Normal 70 - 140 [facility] Comment on above: Performed By: #### 2 05218 #### [facility],[address] [place] [address] GLUCOSE CHALLENGE 50GM 1 HOUR Normal [facility] Comment on above: Result Comment: GLUC OSE CHALLENGE 50 GMS 1 HOUR Performed By: #### 2 32778 #### [facility],[address] [place] [address] CBC + DIFFon 02-27-2023 Baso # 0.00 x10EE3/UL Normal 0.00 - 0.10 [facility] Comment on above: Performed By: #### 2 30522 #### [facility],[address] [place], [place] [address] Basophils/100 WBC (Bld) 0.5 % Normal 0.0 - 2.0 [facility] Comment on above: Performed By: #### 2 96993 #### [facility],[address] [place] [address] CBC + DIFF Normal [facility] Comment on above: Result Comment: CBC- COMPLETE BLOOD COUNT Performed By: #### 2 81597 #### [facility],[address] [place] [address] 04031 EO # 0.40 x10EE3/UL Normal 0.00 - 0.50 [facility] Comment on above: Performed By: #### 2 23573 #### [facility],[address] [place], [place] [id number] Eosinophils/100 WBC (Bld) 4.6 % Normal 0.0 - 7.0 [facility] Comment on above: Performed By: #### 2 50728 #### [facility],[address] [place], [place] [id number] Erythrocyte distribution width (RBC) [Ratio] 13.0 % Normal 12.0 - 15.6 [facility] Comment on above: Performed By: #### 2 79869 #### [facility],[address] [place], [place] [id number] Hematocrit (Bld) [Volume fraction] 31.4 % Low 34.0 - 46.0 [facility] Comment on above: Performed By: #### 2 24519 #### [facility],[address] [place] [address] 36826 Hemoglobin (Bld) [Mass/Vol] 10.3 g/dL Low 12.0 - 16.0 [facility] Comment on above: Performed By: #### 2 69203 #### [facility],[address] [place] [address] 05316 Lymph # 1.60 x10EE3/UL Normal 0.80 - 2.80 [facility] Comment on above: Performed By: #### 2 89862 #### [facility],[address] [place] [address] 92291 Lymphocytes/100 WBC (Bld) 20.3 % Normal 20.0 - 45.0 [facility] Comment on above: Performed By: #### 2 53302 #### [facility],[address] [place] [address] MANUAL DIFF N/A Normal [facility] Comment on above: Performed By: #### 2 26402 #### [facility],[address] [place] [address] MCH (RBC) [Entitic mass] 29 pg Normal 27 - 33 [facility] Comment on above: Performed By: #### 2 46256 #### [facility],[address] [place] [address] MCHC 33 X10 3 Normal 32 - 36 [facility] Comment on above: Performed By: #### 2 40896 #### [facility],[address] [place] [address] MCV (RBC) [Entitic vol] 87 fL Normal 80 - 99 [facility] Comment on above: Performed By: #### 2 31708 #### [facility],[address] [place] [address] [place] # 0.60 x10EE3/UL Normal 0.20 - 1.00 [facility] Comment on above: Performed By: #### 2 09826 #### [facility],[address] [place] [address] MONOS % 7.7 % Normal 0.0 - 10.0 [facility] Comment on above: Performed By: #### 2 27533 #### [facility],[address] [place] [address] Morphology Sekou (Bld) [Interp] N/A Normal [facility] Comment on above: Result Comment: {CD] Performed By: #### 2 91586 #### [facility],[address] [place] [address] Neut # 5.30 x10EE3/UL Normal 1.50 - 7.10 [facility] Comment on above: Performed By: #### 2 77629 #### [facility],[address] [place] [address] 43932 Neutrophils/100 WBC (Bld) 66.9 % Normal 46.0 - 76.0 [facility] Comment on above: Performed By: #### 2 13094 #### [facility],[address] [place] [address] 43691 PLATELET 251 x10EE3/UL Normal 150 - 450 [facility] Comment on above: Performed By: #### 2 24413 #### [facility],[address] [place] [address] 77115 Platelet mean volume (Bld) [Entitic vol] 8.0 fL Normal 6.6 - 10.5 [facility] Comment on above: Result Comment: AUTO MATED DIFFERENTIAL Performed By: #### 2 02902 #### [facility],[address] [place] [address] 53289 RBC 3.61 x 10EE6/UL Low 4.10 - 5.30 [facility] Comment on above: Performed By: #### 2 16676 #### [facility],[address] [place] [address] 99417 WBC 7.8 x 10EE3/UL Normal 4.5 - 10.8 [facility] Comment on above: Performed By: #### 2 34996 #### [facility],[address] [place] [address] 96157 CHEST 1 VIEWon 02-27-2023 CHEST 1 VIEW [place] [address] Patient: LATOYA SOTELO Phone#: : 2005 Age: 17 Gender: F Pt. Type: ER Account: [id number] Location: [facility] Ordering: NELDA GRANT Exam Date: 02/27/2023/18:22 Family Phys: Charge Code: [id number] Physician: [place] Order #: [id number] Dose#: PROCEDURE: X-RAY CHEST 1 VIEW COMPARISON: [facility], CT, CHEST PE W CON, 02/12/2023, 20:51. INDICATIONS: Pneumonia. FINDINGS: LUNGS: Normal. No significant pulmonary parenchymal abnormalities. VASCULATURE: Normal. Unremarkable pulmonary vasculature. CARDIAC: Normal. No cardiac silhouette abnormality or cardiomegaly. MEDIASTINUM: Normal. No visible mass or adenopathy. PLEURA: Normal. No effusion or pleural thickening. BONES: Normal. No fracture or visible bony lesion. OTHER: Monitoring leads project across the thorax. CONCLUSION: No acute disease. Dictated by: Rachelle Matthews MD on 02/27/2023 at 18:35 Approved by: Rachelle Matthews MD on 02/27/2023 at 18:39 Normal [facility] CMP with eGFRon 02-27-2023 AGE 17 years Normal [facility] Comment on above: Performed By: #### 2 63959 #### [facility],[address] [place] [address] 48346 Albumin [Mass/Vol] 2.2 g/dL Low 3.4 - 5.0 [facility] Comment on above: Performed By: #### 2 29587 #### [facility],[address] [place] [address] 86185 Albumin/Globulin [Mass ratio] 0.6 {ratio} Low 0.9 - 1.6 [facility] Comment on above: Performed By: #### 2 35392 #### [facility],[address] [place] [address] 01934 ALK PHOS 91 U/L Normal 46 - 116 [facility] Comment on above: Performed By: #### 2 95093 #### [facility],[address] [place] [address] 63652 ALT [Catalytic activity/Vol] 36 U/L Normal 14 - 59 [facility] Comment on above: Performed By: #### 2 35900 #### [facility],[address] [place] [address] 79286 Anion gap [Moles/Vol] 14 mmol/L Normal 10 - 20 [facility] Comment on above: Performed By: #### 2 52931 #### [facility],[address] [place] [address] 67982 AST [Catalytic activity/Vol] 30 U/L Normal 13 - 39 [facility] Comment on above: Performed By: #### 2 32170 #### [facility],[address] [place] [address] 16379 B/C RATIO 3 ratio Normal 0 - 30 [facility] Comment on above: Performed By: #### 2 44202 #### [facility],[address] [place] [address] 60046 Bilirubin [Mass/Vol] 0.3 mg/dL Normal 0.2 - 1.0 [facility] Comment on above: Performed By: #### 2 49628 #### [facility],[address] [place] [address] 78882 Calcium [Mass/Vol] 8.8 mg/dL Normal 8.5 - 10.1 [facility] Comment on above: Performed By: #### 2 71390 #### [facility],[address] [place] [address] 10390 Chloride [Moles/Vol] 102 mmol/L Normal 98 - 107 [facility] Comment on above: Performed By: #### 2 99458 #### [facility],[address] [place] [address] 09537 CMP with eGFR Normal [facility] Comment on above: Result Comment: COMP REHENSIVE METABOLIC PANEL Performed By: #### 2 68951 #### [facility],[address] [place] [address] 04369 CO2 [Moles/Vol] 23.1 mmol/L Normal 21.0 - 32.0 [facility] Comment on above: Performed By: #### 2 52346 #### [facility],[address] [place] [address] 04601 Creatinine [Mass/Vol] 0.63 mg/dL Normal 0.55 - 1.02 [facility] Comment on above: Performed By: #### 2 61220 #### [facility],[address] [place] [address] 82161 GFR/1.73 sq M.predicted among non-blacks MDRD (S/P/Bld) [Vol rate/Area] mL/min/{1.73_m2} Normal 60 - 999 [facility] Comment on above: Performed By: #### 2 36138 #### [facility],[address] [place] [address] 87076 Result Comment: ACCO RDING TO THE NATIONAL KIDNEY DISEASE EDUCATION PROGRAM(NKDE), A NORMAL eGFR IS A VALUE GREATER THAN OR EQUAL TO 60 ML/MIN/1.73 SQ METERS. CHRONIC KIDNEY DISEASE: <60mL/MIN/1.73 SQ METERS KIDNEY FAILURE: <15mL/MIN/1.73 SQ METERS THIS TEST SHOULD ONLY BE USED FOR PATIENTS 18 YEARS OF AGE AND OLDER. Globulin (S) [Mass/Vol] 3.6 g/dL Normal 1.5 - 3.8 [facility] Comment on above: Performed By: #### 2 27777 #### [facility],[address] [place] [address] 92470 Glucose [Mass/Vol] 120 mg/dL High 74 - 106 [facility] Comment on above: Performed By: #### 2 11382 #### [facility],[address] [place] [address] 34944 Potassium [Moles/Vol] 2.9 mmol/L Critically low 3.5 - 5.1 [facility] Comment on above: Result Comment: { CA LLED TO ER @ 2003 BY LZ { READ BACK BY ELI Leyva RN Performed By: #### 2 29356 #### [facility],[address] [place] [address] 84288 Protein [Mass/Vol] 5.8 g/dL Low 6.4 - 8.2 [facility] Comment on above: Performed By: #### 2 08409 #### [facility],[address] [place] [address] 59655 Sodium [Moles/Vol] 136 mmol/L Normal 136 - 145 [facility] Comment on above: Performed By: #### 2 94826 #### [facility],[address] [place] [address] 10114 Urea nitrogen [Mass/Vol] 2 mg/dL Low 7 - 18 [facility] Comment on above: Performed By: #### 2 67468 #### [facility],[address] [place] [address] 45309 LACTATEon 02-27-2023 Lactate [Moles/Vol] 2.9 mmol/L High 0.4 - 2.0 [facility] Comment on above: Result Comment: LACT ATE 3 HR NOTIFIED TO: _LOUIE_RN/PHLEB_PEG 02/27/23.LZ . . . LACTATE 3 HR NOTIFIED BY: _LZ 02/27/23.LZ . . . Performed By: #### 2 78955 #### [facility],[address] [place] [address] 48946 NT-proBNPon 02-27-2023 Natriuretic peptide B (Bld) [Mass/Vol] 671 pg/mL High 0 - 125 [facility] Comment on above: Performed By: #### 2 68026 #### [facility],[address] [place] [address] 70046 TROPONIN I, HIGH SENSITIVITY on 02-27-2023 HS TROPONIN <4.0 Normal 0.0 - 51.4 [facility] Comment on above: Performed By: #### 2 06128 #### [facility],[address] [place] [address] 99658 URINALYSISon 02-27-2023 Amorphous NONE Normal [facility] Comment on above: Performed By: #### 2 89841 #### [facility],[address] [place] [address] 93631 Bacteria TRACE Normal [facility] Comment on above: Performed By: #### 2 90396 #### [facility],[address] [place] [address] 33932 Bilirubin Ql (U) Negative Normal NORMAL: NEGATIVE [facility] Comment on above: Performed By: #### 2 19068 #### [facility],[address] [place] [address] 96000 Casts NONE Normal [facility] Comment on above: Performed By: #### 2 53690 #### [facility],[address] [place], [place] [id number] Clarity (U) clear Normal NORMAL: CLEAR [facility] Comment on above: Performed By: #### 2 38856 #### [facility],[address] [place], [place] [id number] Color (U) yellow Normal NORMAL: YELLOW [facility] Comment on above: Performed By: #### 2 65609 #### [facility],[address] [place], [place] [id number] Crystals LM Nom (Urine sed) NONE Normal [facility] Comment on above: Performed By: #### 2 51022 #### [facility],[address] [place] [address] 91171 Epi Cells MODERATE Normal [facility] Comment on above: Performed By: #### 2 37402 #### [facility],[address] [place] [address] 69945 Glucose Ql (U) 1000 Abnormal NORMAL: NORMAL [facility] Comment on above: Performed By: #### 2 65297 #### [facility],[address] [place] [address] 17953 Hemoglobin Ql (U) 10 Abnormal NORMAL: NEGATIVE [facility] Comment on above: Performed By: #### 2 57009 #### [facility],[address] [place] [address] 05470 Ketone Negative Normal NORMAL: NEGATIVE [facility] Comment on above: Performed By: #### 2 00175 #### [facility],[address] [place] [address] 06601 Leukocytes Negative Normal NORMAL: NEGATIVE [facility] Comment on above: Performed By: #### 2 64297 #### [facility],[address] [place] [address] 59412 Mucous NONE Normal [facility] Comment on above: Performed By: #### 2 89991 #### [facility],[address] [place], [place] [id number] Nitrite Ql (U) Negative Normal NORMAL: NEGATIVE [facility] Comment on above: Performed By: #### 2 07115 #### [facility],[address] [place] [address] pH (U) 6.5 [pH] Normal NORMAL: 5.0-8.0 [facility] Comment on above: Performed By: #### 2 09475 #### [facility],[address] [place], [place] [id number] Protein Ql (U) Negative Normal NORMAL: NEGATIVE [facility] Comment on above: Performed By: #### 2 04180 #### [facility],[address] [place] [address] Rbc 0-5 Normal 0-3/hpf [facility] Comment on above: Performed By: #### 2 91864 #### [facility],[address] [place], [place] [id number] [place] 1.010 Normal NORMAL: 1.010-1.030 [facility] Comment on above: Performed By: #### 2 47427 #### [facility],[address] [place], [place] [id number] Specimen Type UNSPECIFIED Normal [facility] Comment on above: Performed By: #### 2 26334 #### [facility],[address] [place], [place] [id number] Urinalysis dipstick W Reflex Microscopic panel (U) SEE BELOW Normal [facility] Comment on above: Result Comment: MICR OSCOPIC Performed By: #### 2 67931 #### [facility],[address] [place] [address] Urobilinog NORM Normal NORMAL: NORMAL [facility] Comment on above: Performed By: #### 2 65212 #### [facility],[address] [place] [address] Wbc NONE Normal 0-5/hpf [facility] Comment on above: Performed By: #### 2 32849 #### [facility],[address] [place] [address] Yeast NONE Normal [facility] Comment on above: Performed By: #### 2 68192 #### [facility],[address] [place] [address] BB TYPE & SCREENon 4 ABO B Normal [facility] Comment on above: Performed By: #### 2 02674 #### [facility],[address] [place] [address] ANTIBODY SCR Negative Normal [facility] Comment on above: Performed By: #### 2 26407 #### [facility],[address] [place] [address] BB TYPE & SCREEN Normal [facility] Comment on above: Result Comment: TYPE , Rh, AND SCREEN Performed By: #### 2 92325 #### [facility],[address] [place] [address] Rh Nom (Bld) Positive Normal [facility] Comment on above: Performed By: #### 2 02305 #### [facility],[address] [place] [address] CBC + DIFFon 02-26-2023 Baso # 0.00 x10EE3/UL Normal 0.00 - 0.10 [facility] Comment on above: Performed By: #### 2 56669 #### [facility],[address] [place] [address] Basophils/100 WBC (Bld) 0.4 % Normal 0.0 - 2.0 [facility] Comment on above: Performed By: #### 2 25780 #### [place] [address] CBC + DIFF Normal [facility] Comment on above: Result Comment: CBC- COMPLETE BLOOD COUNT Performed By: #### 2 94435 #### [facility],[address] [place] [address] EO # 0.20 x10EE3/UL Normal 0.00 - 0.50 [facility] Comment on above: Performed By: #### 2 82364 #### [place] [address] Eosinophils/100 WBC (Bld) 1.8 % Normal 0.0 - 7.0 [facility] Comment on above: Performed By: #### 2 32633 #### [facility],[address] [place] [address] Erythrocyte distribution width (RBC) [Ratio] 13.3 % Normal 12.0 - 15.6 [facility] Comment on above: Performed By: #### 2 65788 #### [facility],[address] [place] [address] Hematocrit (Bld) [Volume fraction] 26.9 % Low 34.0 - 46.0 [facility] Comment on above: Performed By: #### 2 70026 #### [facility],[address] [place] [address] Hemoglobin (Bld) [Mass/Vol] 8.9 g/dL Low 12.0 - 16.0 [facility] Comment on above: Performed By: #### 2 51609 #### [facility],[address] [place] [address] Lymph # 1.40 x10EE3/UL Normal 0.80 - 2.80 [facility] Comment on above: Performed By: #### 2 84129 #### [facility],[address] [place] [address] Lymphocytes/100 WBC (Bld) 15.7 % Low 20.0 - 45.0 [facility] Comment on above: Performed By: #### 2 59566 #### [facility],[address] [place] [address] MANUAL DIFF N/A Normal [facility] Comment on above: Performed By: #### 2 51726 #### [facility],[address] [place] [address] MCH (RBC) [Entitic mass] 29 pg Normal 27 - 33 [facility] Comment on above: Performed By: #### 2 78565 #### [facility],[address] [place] [address] MCHC 33 X10 3 Normal 32 - 36 [facility] Comment on above: Performed By: #### 2 36813 #### [facility],[address] [place] [address] MCV (RBC) [Entitic vol] 87 fL Normal 80 - 99 [facility] Comment on above: Performed By: #### 2 33487 #### [facility],[address] [place] [address] [place] # 0.90 x10EE3/UL Normal 0.20 - 1.00 [facility] Comment on above: Performed By: #### 2 18537 #### [facility],[address] [place] [address] MONOS % 9.3 % Normal 0.0 - 10.0 [facility] Comment on above: Performed By: #### 2 26847 #### [facility],[address] [place] [address] Morphology Sekou (Bld) [Interp] N/A Normal [facility] Comment on above: Result Comment: {CD] Performed By: #### 2 49326 #### [facility],[address] [place], [place] [address] Neut # 6.70 x10EE3/UL Normal 1.50 - 7.10 [facility] Comment on above: Performed By: #### 2 42394 #### [facility],[address] [place] [address] Neutrophils/100 WBC (Bld) 72.8 % Normal 46.0 - 76.0 [facility] Comment on above: Performed By: #### 2 30625 #### [facility],[address] [place] [address]140 PLATELET 205 x10EE3/UL Normal 150 - 450 [facility] Comment on above: Performed By: #### 2 86229 #### [facility],[address] [place] [address] Platelet mean volume (Bld) [Entitic vol] 8.5 fL Normal 6.6 - 10.5 [facility] Comment on above: Result Comment: AUTO MATED DIFFERENTIAL Performed By: #### 2 10269 #### [facility],[address] [place] [address] 58312 RBC 3.08 x 10EE6/UL Low 4.10 - 5.30 [facility] Comment on above: Performed By: #### 2 00665 #### [facility],[address] [place] [address]3655 WBC 9.2 x 10EE3/UL Normal 4.5 - 10.8 [facility] Comment on above: Performed By: #### 2 89606 #### [facility],[address] [place] [address]77 Baso # 0.00 x10EE3/UL Normal 0.00 - 0.10 [facility] Comment on above: Performed By: #### 2 75054 #### [facility],[address] [place] [address] 18288 Basophils/100 WBC (Bld) 0.2 % Normal 0.0 - 2.0 [facility] Comment on above: Performed By: #### 2 06982 #### [facility],[address] [place] [address]85 CBC + DIFF Normal [facility] Comment on above: Result Comment: CBC- COMPLETE BLOOD COUNT Performed By: #### 2 58805 #### [facility],[address] [place] [address] 23156 EO # 0.40 x10EE3/UL Normal 0.00 - 0.50 [facility] Comment on above: Performed By: #### 2 67165 #### [facility],[address] [place] [address] 90001 Eosinophils/100 WBC (Bld) 3.2 % Normal 0.0 - 7.0 [facility] Comment on above: Performed By: #### 2 74996 #### [facility],[address] [place], [place] [phone] Erythrocyte distribution width (RBC) [Ratio] 13.0 % Normal 12.0 - 15.6 [facility] Comment on above: Performed By: #### 2 20244 #### [facility],[address] [place] [address] Hematocrit (Bld) [Volume fraction] 31.3 % Low 34.0 - 46.0 [facility] Comment on above: Performed By: #### 2 63888 #### [facility],[address] [place] [address] 53376 Hemoglobin (Bld) [Mass/Vol] 10.3 g/dL Low 12.0 - 16.0 [facility] Comment on above: Performed By: #### 2 53050 #### [facility],[address] [place] [address] 51086 Lymph # 1.00 x10EE3/UL Normal 0.80 - 2.80 [facility] Comment on above: Performed By: #### 2 90040 #### [facility],[address] [place] [address]446 Lymphocytes/100 WBC (Bld) 8.4 % Low 20.0 - 45.0 [facility] Comment on above: Performed By: #### 2 08230 #### [facility],[address] [place] [address]9036 MANUAL DIFF N/A Normal [facility] Comment on above: Performed By: #### 2 92812 #### [facility],[address] [place] [address] MCH (RBC) [Entitic mass] 28 pg Normal 27 - 33 [facility] Comment on above: Performed By: #### 2 73687 #### [facility],[address] [place] [address] MCHC 33 X10 3 Normal 32 - 36 [facility] Comment on above: Performed By: #### 2 45284 #### [facility],[address] [place] [address] MCV (RBC) [Entitic vol] 86 fL Normal 80 - 99 [facility] Comment on above: Performed By: #### 2 17082 #### [facility],[address] [place] [address] [place] # 1.00 x10EE3/UL Normal 0.20 - 1.00 [facility] Comment on above: Performed By: #### 2 28507 #### [facility],[address] [place] [address] MONOS % 8.3 % Normal 0.0 - 10.0 [facility] Comment on above: Performed By: #### 2 04191 #### [facility],[address] [place] [address] 18960 Morphology Sekou (Bld) [Interp] N/A Normal [facility] Comment on above: Result Comment: {CD] Performed By: #### 2 60565 #### [facility],[address] [place] [address] Neut # 9.40 x10EE3/UL High 1.50 - 7.10 [facility] Comment on above: Performed By: #### 2 97310 #### [facility],[address] [place] [address]608 Neutrophils/100 WBC (Bld) 79.9 % High 46.0 - 76.0 [facility] Comment on above: Performed By: #### 2 33206 #### [facility],[address] [place] [address] 95188 PLATELET 242 x10EE3/UL Normal 150 - 450 [facility] Comment on above: Performed By: #### 2 94112 #### [facility],[address] [place] [address] 31523 Platelet mean volume (Bld) [Entitic vol] 8.2 fL Normal 6.6 - 10.5 [facility] Comment on above: Result Comment: AUTO MATED DIFFERENTIAL Performed By: #### 2 92264 #### [facility],[address] [place] [address] 32260 RBC 3.62 x 10EE6/UL Low 4.10 - 5.30 [facility] Comment on above: Performed By: #### 2 56938 #### [facility],[address] [place] [address] 02449 WBC 11.7 x 10EE3/UL High 4.5 - 10.8 [facility] Comment on above: Performed By: #### 2 34961 #### [facility],[address] [place] [address] 50245 CMP with eGFRon 02-26-2023 AGE 17 years Normal [facility] Comment on above: Performed By: #### 2 96452 #### [facility],[address] [place] [address] 35517 Albumin [Mass/Vol] 2.5 g/dL Low 3.4 - 5.0 [facility] Comment on above: Performed By: #### 2 83199 #### [facility],[address] [place] [address] 53125 Albumin/Globulin [Mass ratio] 0.6 {ratio} Low 0.9 - 1.6 [facility] Comment on above: Performed By: #### 2 24693 #### [facility],[address] [place] [address] 40997 ALK PHOS 85 U/L Normal 46 - 116 [facility] Comment on above: Performed By: #### 2 21333 #### [facility],[address] [place], [place] [phone] ALT [Catalytic activity/Vol] 23 U/L Normal 14 - 59 [facility] Comment on above: Performed By: #### 2 89867 #### [facility],[address] [place] [address] Anion gap [Moles/Vol] 16 mmol/L Normal 10 - 20 [facility] Comment on above: Performed By: #### 2 86472 #### [facility],[address] [place], [place] [phone] AST [Catalytic activity/Vol] 22 U/L Normal 13 - 39 [facility] Comment on above: Performed By: #### 2 28911 #### [facility],[address] [place] [address] 99885 B/C RATIO 6 ratio Normal 0 - 30 [facility] Comment on above: Performed By: #### 2 92924 #### [facility],[address] [place] [address] 73029 Bilirubin [Mass/Vol] 0.3 mg/dL Normal 0.2 - 1.0 [facility] Comment on above: Performed By: #### 2 21460 #### [facility],[address] [place] [address] 67602 Calcium [Mass/Vol] 8.6 mg/dL Normal 8.5 - 10.1 [facility] Comment on above: Performed By: #### 2 26473 #### [facility],[address] [place] [address] 07078 Chloride [Moles/Vol] 101 mmol/L Normal 98 - 107 [facility] Comment on above: Performed By: #### 2 66574 #### [facility],[address] [place] [address] 08227 CMP with eGFR Normal [facility] Comment on above: Result Comment: COMP REHENSIVE METABOLIC PANEL Performed By: #### 2 14144 #### [facility],[address] [place] [address] CO2 [Moles/Vol] 20.9 mmol/L Low 21.0 - 32.0 [facility] Comment on above: Performed By: #### 2 61952 #### [facility],[address] [place] [address] Creatinine [Mass/Vol] 0.50 mg/dL Low 0.55 - 1.02 [facility] Comment on above: Performed By: #### 2 71148 #### [facility],[address] [place] [address] GFR/1.73 sq M.predicted among non-blacks MDRD (S/P/Bld) [Vol rate/Area] mL/min/{1.73_m2} Normal 60 - 999 [facility] Comment on above: Performed By: #### 2 35901 #### [place] [address] Result Comment: ACCO RDING TO THE NATIONAL KIDNEY DISEASE EDUCATION PROGRAM(NKDE), A NORMAL eGFR IS A VALUE GREATER THAN OR EQUAL TO 60 ML/MIN/1.73 SQ METERS. CHRONIC KIDNEY DISEASE: <60mL/MIN/1.73 SQ METERS KIDNEY FAILURE: <15mL/MIN/1.73 SQ METERS THIS TEST SHOULD ONLY BE USED FOR PATIENTS 18 YEARS OF AGE AND OLDER. Globulin (S) [Mass/Vol] 4.1 g/dL High 1.5 - 3.8 [facility] Comment on above: Performed By: #### 2 45458 #### [place] [address] Glucose [Mass/Vol] 91 mg/dL Normal 74 - 106 [facility] Comment on above: Performed By: #### 2 29157 #### [facility],[address] [place] [address] Potassium [Moles/Vol] 3.3 mmol/L Low 3.5 - 5.1 [facility] Comment on above: Performed By: #### 2 92600 #### [facility],[address] [place] [address] Protein [Mass/Vol] 6.6 g/dL Normal 6.4 - 8.2 [facility] Comment on above: Performed By: #### 2 22603 #### [facility],[address] [place] [address] Sodium [Moles/Vol] 135 mmol/L Low 136 - 145 [facility] Comment on above: Performed By: #### 2 04602 #### [facility],[address] [place] [address] Urea nitrogen [Mass/Vol] 3 mg/dL Low 7 - 18 [facility] Comment on above: Performed By: #### 2 61140 #### [facility],[address] [place] [address] CORONAVIRUS (SARS) ANTIGEN T ESTon 02-26-2023 EXTERNAL QC DONE? YES Normal [facility] Comment on above: Performed By: #### 2 44946 #### [facility],[address] [place] [address] INTERNAL CONTROL PASS Normal [facility] Comment on above: Performed By: #### 2 90137 #### [facility],[address] [place] [address] SARS ANTIGEN Negative Normal NORMAL: NEGATIVE [facility] Comment on above: Performed By: #### 2 05971 #### [facility],[address] [place] [address] SEND TO ? YES [facility] Comment on above: Result Comment: SARS -CoV-2 THIS TEST IS BEING USED UNDER THE FDA EUA PROCEDURE. THIS ASSAY HAS BEEN VALIDATED AT [facility] FOR USE WITH NASAL AND NASOPHARYNGEAL SWAB SPECIMENS. INTERPRETIVE DATA TEST RESULTS SHOULD ALWAYS BE CONSIDERED IN THE CONTEXT OF CLINICAL OBSERVATIONS AND EPIDEMIOLOGICAL DATA IN MAKING FINAL DIAGNOSIS AND PATIENT MANAGEMENT DECISIONS. PATIENT MANAGEMENT SHOULD FOLLOW CURRENT CDC GUIDELINES. THE NAEEM SARS ANTIGEN YUMKIO DOES NOT DIFFERENTIATE BETWEEN SARS-CoV & SARS-CoV-2. A POSITIVE TEST RESULT INDICATES THE PRESENCE OF SARS-CoV-2 NUCLEOCAPSID PROTEIN ANTIGEN, AND THE PATIENT IS INFECTED WITH THE VIRUS AND PRESUMED TO BE CONTAGIOUS. A NEGATIVE TEST RESULT FOR THIS TEST MEANS THAT SARS-CoV-2 NUCLEOCAPSID PROTEIN ANTIGEN WAS NOT PRESENT IN THE SPECIMEN ABOVE THE LIMIT OF DETECTION. HOWEVER, A NEGATIVE RESULT DOES NOT RULE OUT COVID-19 AND SHOULD NOT BE USED THE SOLE BASIS FOR TREATMENT OR PATIENT MANAGEMENT DECISIONS. A NEGATIVE RESULT DOES NOT EXCLUDE THE POSSIBILITY OF COVID-19. NEGATIVE RESULTS, FROM PATIENTS WITH SYMPTOM ONSET BEYOND FIVE DAYS, SHOULD BE TREATED PRESUMPTIVE AND CONFIRMATION WITH A MOLECULAR ASSAY, IF NECESSARY, FOR PATIENT MANAGEMENT, MAY BE PERFORMED. WHEN DIAGNOSTIC TESTING IS NEGATIVE, THE POSSIBLILTY OF A FALSE NEGATIVE RESULT SHOULD BE CONSIDERED IN THE CONTEXT OF A PATIENT'S RECENT EXPOSURES AND THE PRESENCE OF CLINICAL SIGNS AND SYMPTOMS CONSISTENT WITH COVID-19. THE POSSIBILITY OF A FALSE NEGATIVE RESULT SHOULD ESPECIALLY BE CONSIDERED IF THE PATIENT'S RECENT EXPOSURES OR CLINICAL PRESENTATION INDICATE THAT COVID-19 IS LIKELY, AND DIAGNOSTIC TESTS FOR OTHER CAUSES OF ILLNESS (e.g., OTHER RESPIRATORY ILLNESS) ARE NEGATIVE. IF COVID-19 IS STILL SUSPECTED BASED ON EXPOSURE HISTORY TOGETHER WITH OTHER CLINICAL FINDINGS, RE-TESTING SHOULD BE CONSIDERED BY HEALTHCARE PROVIDERS IN CONSULTATION WITH PUBLIC HEALTH AUTHORITIES. Performed By: #### 2 67118 #### [place] [address] CULT STREP REFLEX ONLYon CULT STREP REFLEX ONLY CULT STREP REFLEX ONLY _REFLEX STREP SCREEN CULTURE ONLY_ 02/28/[id number].DNP.COMP FRANCHESCA [facility] Comment on above: Performed By: #### 2 83715 #### [place] [address] CULTURE BLOOD [CLEMENT]on Microscopic examination of blood, culture CULTURE BLOOD [CLEMENT] _BLOOD CULTURE_ [facility] REPORTS AND ATTACHMENTS FOR SCANNED REPORT 03/05/[id number].DNP.COMP LETE Normal [facility] Comment on above: Performed By: #### 2 18987 #### [facility],[address] [place] [address] 88850 INFLUENZA VIRUS RAPID A/Bon 02-26-2023 INFLUENZA VIRUS RAPID A/B INFLUENZA A NEGATIVE INFLUENZA B NEGATIVE INTERNAL NEG QC PASS INTERNAL POS QC PASS EXTERNAL QC DONE? YES SEND TO IC? YES A NEGATIVE TEST RESULT DOES NOT EXCLUDE INFECTION WITH INFLUENZA A OR B. THEREFORE, THE RESULTS OBTAINED FROM THIS FLU TEST SHOULD BE USED IN CONJUCTION WITH CLINICAL FINDINGS TO MAKE AN ACCURATE DIAGNOSIS. A POSITIVE RESULT DOES NOT RULE OUT CO-INFECTIONS WITH OTHER PATHOGENS OR IDENTIFY ANY SPECIFIC INFLUENZA A VIRUS SUBTYPE.CO-INFECTION WITH INFLUENZA A AND B IS RARE. IT IS RECOMMENDED THAT DUAL POSITIVE RESULTS BE CONFIRMED BY VIRAL CULTURE OR AN FDA-CLEARED INFLUENZA A AND B MOLECULAR ASSAY. INDIVIDUALS WHO HAVE RECEIVED NASALLY ADMINISTERED INFLUENZA A VACCINE MAY TEST POSITIVE IN COMMERCIALLY AVAILABLE INFLUENZA RAPID DIAGNOSTIC TESTS FOR UP TO THREE DAYS. RESULT CRITICAL? NO Normal [facility] Comment on above: Performed By: #### 2 77050 #### [facility],[address] [place] [address] 71836 LACTATEon 02-26-2023 Lactate [Moles/Vol] 1.1 mmol/L Normal 0.4 - 2.0 [facility] Comment on above: Performed By: #### 2 82033 #### [facility],[address] [place] [address] 34058 RAPID STREPon 02-26-2023 S. pyogenes Ag IA Ql (Unsp spec) Rapid Strep NEG:GRP A STREP INTERNAL QC PASS EXTERNAL QC DONE? YES Normal [facility] Comment on above: Performed By: #### 2 28833 #### [facility],[address] [place] [address] 60208 TROPONIN I, HIGH SENSITIVITY on 01-15-2024 HS TROPONIN 5.1 pg/mL Normal 0.0 - 51.4 [facility] Comment on above: Performed By: #### 2 30806 #### [facility],[address] [place] [address] 30286 HS TROPONIN 4.1 pg/mL Normal 0.0 - 51.4 [facility] Comment on above: Performed By: #### 2 16963 #### [facility],[address] [place] [address] URINALYSISon 02-26-2023 Amorphous NONE Normal [facility] Comment on above: Performed By: #### 2 93772 #### [facility],[address] [place] [address] Bacteria 1+ Normal [facility] Comment on above: Performed By: #### 2 66741 #### [facility],[address] [place] [address] Bilirubin Ql (U) Negative Normal NORMAL: NEGATIVE [facility] Comment on above: Performed By: #### 2 63617 #### [facility],[address] [place] [address] Casts NONE Normal [facility] Comment on above: Performed By: #### 2 80322 #### [facility],[address] [place], [place] [id number] Clarity (U) clear Normal NORMAL: CLEAR [facility] Comment on above: Performed By: #### 2 57407 #### [facility],[address] [place], [place] [id number] Color (U) yellow Normal NORMAL: YELLOW [facility] Comment on above: Performed By: #### 2 36669 #### [facility],[address] [place], [place] [id number] Crystals LM Nom (Urine sed) NONE Normal [facility] Comment on above: Performed By: #### 2 04443 #### [facility],[address] [place], [place] [id number] Epi Cells MANY Normal [facility] Comment on above: Performed By: #### 2 76403 #### [facility],[address] [place] [address] 56171 Glucose Ql (U) NORM Normal NORMAL: NORMAL [facility] Comment on above: Performed By: #### 2 90425 #### [facility],[address] [place] [address] 14941 Hemoglobin Ql (U) Negative Normal NORMAL: NEGATIVE [facility] Comment on above: Performed By: #### 2 05347 #### [facility],[address] [place] [address] 79893 Ketone 150 Abnormal NORMAL: NEGATIVE [facility] Comment on above: Performed By: #### 2 83572 #### [facility],[address] [place] [address] 73026 Leukocytes 25 Abnormal NORMAL: NEGATIVE [facility] Comment on above: Performed By: #### 2 22102 #### [facility],[address] [place] [address] 75632 Mucous 2+ Normal [facility] Comment on above: Performed By: #### 2 37057 #### [facility],[address] [place] [address] 52208 Nitrite Ql (U) Negative Normal NORMAL: NEGATIVE [facility] Comment on above: Performed By: #### 2 16964 #### [facility],[address] [place] [address] 48269 pH (U) 6.5 [pH] Normal NORMAL: 5.0-8.0 [facility] Comment on above: Performed By: #### 2 63306 #### [facility],[address] [place] [address] 07624 Protein Ql (U) 15 Abnormal NORMAL: NEGATIVE [facility] Comment on above: Performed By: #### 2 85897 #### [facility],[address] [place] [address] 09791 Rbc NONE Normal 0-3/hpf [facility] Comment on above: Performed By: #### 2 75369 #### [facility],[address] [place] [address] Sp [place] 1.010 Normal NORMAL: 1.010-1.030 [facility] Comment on above: Performed By: #### 2 80045 #### [facility],[address] [place] [address] Specimen Type Clean catch Normal [facility] Comment on above: Performed By: #### 2 58318 #### [facility],[address] [place] [address] Urinalysis dipstick W Reflex Microscopic panel (U) SEE BELOW Normal [facility] Comment on above: Result Comment: MICR OSCOPIC Performed By: #### 2 79912 #### [facility],[address] [place] [address] Urobilinog 1 Abnormal NORMAL: NORMAL [facility] Comment on above: Performed By: #### 2 71692 #### [facility],[address] [place] [address] Wbc 6-10 Normal 0-5/hpf [facility] Comment on above: Performed By: #### 2 07213 #### [facility],[address] [place] [address] Yeast NONE Normal [facility] Comment on above: Performed By: #### 2 04376 #### [facility],[address] [place], [place] [id number] URINE CULTURE [CCL]on 2023 Bacteria identified Cx Nom (U) URCUL See Results Below See Below CULTURE, URINE NORMAL UROGENITAL KJ 10,000 -<50,000 CFU/ml Normal urogenital kj SOURCE: URINE [facility] [employer] [address] [place] [address] Harvey Parmar III, M.D. [id number] SEND TO IC NO Normal [facility] Comment on above: Performed By: #### 2 64590 #### [facility],[address] [place] [address] CBC + DIFFon 02-12-2023 Baso # 0.10 x10EE3/UL Normal 0.00 - 0.10 [facility] Comment on above: Performed By: #### 2 65523 #### [facility],[address] [place] [address] Basophils/100 WBC (Bld) 0.9 % Normal 0.0 - 2.0 [facility] Comment on above: Performed By: #### 2 23677 #### [facility],[address] [place] [address] CBC + DIFF Normal [facility] Comment on above: Result Comment: CBC- COMPLETE BLOOD COUNT Performed By: #### 2 62088 #### [facility],[address] [place] [address] EO # 0.30 x10EE3/UL Normal 0.00 - 0.50 [facility] Comment on above: Performed By: #### 2 40608 #### [facility],[address] [place] [address] Eosinophils/100 WBC (Bld) 3.5 % Normal 0.0 - 7.0 [facility] Comment on above: Performed By: #### 2 29109 #### [facility],[address] [place] [address] Erythrocyte distribution width (RBC) [Ratio] 13.2 % Normal 12.0 - 15.6 [facility] Comment on above: Performed By: #### 2 41202 #### [facility],[address] [place] [address] Hematocrit (Bld) [Volume fraction] 32.6 % Low 34.0 - 46.0 [facility] Comment on above: Performed By: #### 2 29061 #### [facility],[address] [place] [address] Hemoglobin (Bld) [Mass/Vol] 11.2 g/dL Low 12.0 - 16.0 [facility] Comment on above: Performed By: #### 2 82278 #### [facility],[address] [place] [address] Lymph # 2.00 x10EE3/UL Normal 0.80 - 2.80 [facility] Comment on above: Performed By: #### 2 17421 #### [facility],[address] [place] [address] Lymphocytes/100 WBC (Bld) 21.1 % Normal 20.0 - 45.0 [facility] Comment on above: Performed By: #### 2 96151 #### [facility],[address] [place] [address] MANUAL DIFF N/A Normal [facility] Comment on above: Performed By: #### 2 42356 #### [facility],[address] [place] [address] MCH (RBC) [Entitic mass] 30 pg Normal 27 - 33 [facility] Comment on above: Performed By: #### 2 22484 #### [facility],[address] [place] [address] MCHC 34 X10 3 Normal 32 - 36 [facility] Comment on above: Performed By: #### 2 95054 #### [facility],[address] [place] [address] MCV (RBC) [Entitic vol] 88 fL Normal 80 - 99 [facility] Comment on above: Performed By: #### 2 10625 #### [facility],[address] [place] [address] [place] # 0.70 x10EE3/UL Normal 0.20 - 1.00 [facility] Comment on above: Performed By: #### 2 36033 #### [facility],[address] [place] [address] MONOS % 7.7 % Normal 0.0 - 10.0 [facility] Comment on above: Performed By: #### 2 75734 #### [facility],[address] [place] [address] Morphology [place] (Bld) [Interp] N/A Normal [facility] Comment on above: Result Comment: {CD] Performed By: #### 2 71227 #### [facility],[address] [place] [address] Neut # 6.40 x10EE3/UL Normal 1.50 - 7.10 [facility] Comment on above: Performed By: #### 2 94921 #### [place] [address] Neutrophils/100 WBC (Bld) 66.8 % Normal 46.0 - 76.0 [facility] Comment on above: Performed By: #### 2 13634 #### [place] [address] PLATELET 257 x10EE3/UL Normal 150 - 450 [facility] Comment on above: Performed By: #### 2 84064 #### [place] [address] Platelet mean volume (Bld) [Entitic vol] 8.3 fL Normal 6.6 - 10.5 [facility] Comment on above: Result Comment: AUTO MATED DIFFERENTIAL Performed By: #### 2 22058 #### [place] [address] RBC 3.71 x 10EE6/UL Low 4.10 - 5.30 [facility] Comment on above: Performed By: #### 2 04807 #### [facility],[address] [place] [address] WBC 9.6 x 10EE3/UL Normal 4.5 - 10.8 [facility] Comment on above: Performed By: #### 2 40292 #### [address],[place] [address] CMP with eGFRon 02-12-2023 AGE 17 years Normal [facility] Comment on above: Performed By: #### 2 11577 #### [facility],[address] [place] [address] 05881 Albumin [Mass/Vol] 2.6 g/dL Low 3.4 - 5.0 [facility] Comment on above: Performed By: #### 2 80415 #### [facility],[address] [place] [address] 25721 Albumin/Globulin [Mass ratio] 0.7 {ratio} Low 0.9 - 1.6 [facility] Comment on above: Performed By: #### 2 25237 #### [facility],[address] [place] [address] 44263 ALK PHOS 76 U/L Normal 46 - 116 [facility] Comment on above: Performed By: #### 2 76615 #### [facility],[address] [place] [address] 72478 ALT [Catalytic activity/Vol] 17 U/L Normal 14 - 59 [facility] Comment on above: Performed By: #### 2 64640 #### [facility],[address] [place] [address] 18390 Anion gap [Moles/Vol] 19 mmol/L Normal 10 - 20 [facility] Comment on above: Performed By: #### 2 38712 #### [facility],[address] [place] [address] 95857 AST [Catalytic activity/Vol] 17 U/L Normal 13 - 39 [facility] Comment on above: Performed By: #### 2 77341 #### [facility],[address] [place] [address] 34688 B/C RATIO 9 ratio Normal 0 - 30 [facility] Comment on above: Performed By: #### 2 94481 #### [facility],[address] [place] [address] 21996 Bilirubin [Mass/Vol] 0.2 mg/dL Normal 0.2 - 1.0 [facility] Comment on above: Performed By: #### 2 25194 #### [facility],[address] [place] [address] 53220 Calcium [Mass/Vol] 9.0 mg/dL Normal 8.5 - 10.1 [facility] Comment on above: Performed By: #### 2 07431 #### [facility],[address] [place] [address] 16947 Chloride [Moles/Vol] 104 mmol/L Normal 98 - 107 [facility] Comment on above: Performed By: #### 2 45779 #### [facility],[address] [place], [place] [id number] CMP with eGFR Normal [facility] Comment on above: Result Comment: COMP REHENSIVE METABOLIC PANEL Performed By: #### 2 99286 #### [facility],[address] [place] [address] 42121 CO2 [Moles/Vol] 19.8 mmol/L Low 21.0 - 32.0 [facility] Comment on above: Performed By: #### 2 69809 #### [facility],[address] [place] [address] 11855 Creatinine [Mass/Vol] 0.69 mg/dL Normal 0.55 - 1.02 [facility] Comment on above: Performed By: #### 2 06298 #### [facility],[address] [place] [address] 49822 GFR/1.73 sq M.predicted among non-blacks MDRD (S/P/Bld) [Vol rate/Area] mL/min/{1.73_m2} Normal 60 - 999 [facility] Comment on above: Performed By: #### 2 63748 #### [facility],[address] [place] [address] Result Comment: ACCO RDING TO THE NATIONAL KIDNEY DISEASE EDUCATION PROGRAM(NKDE), A NORMAL eGFR IS A VALUE GREATER THAN OR EQUAL TO 60 ML/MIN/1.73 SQ METERS. CHRONIC KIDNEY DISEASE: <60mL/MIN/1.73 SQ METERS KIDNEY FAILURE: <15mL/MIN/1.73 SQ METERS THIS TEST SHOULD ONLY BE USED FOR PATIENTS 18 YEARS OF AGE AND OLDER. Globulin (S) [Mass/Vol] 3.9 g/dL High 1.5 - 3.8 [facility] Comment on above: Performed By: #### 2 69725 #### [facility],[address] [place] [address] 78121 Glucose [Mass/Vol] 81 mg/dL Normal 74 - 106 [facility] Comment on above: Performed By: #### 2 12255 #### [facility],[address] [place] [address] 50382 Potassium [Moles/Vol] 3.4 mmol/L Low 3.5 - 5.1 [facility] Comment on above: Performed By: #### 2 45646 #### [facility],[address] [place] [address] 93116 Protein [Mass/Vol] 6.5 g/dL Normal 6.4 - 8.2 [facility] Comment on above: Performed By: #### 2 96728 #### [facility],[address] [place] [address] 47814 Sodium [Moles/Vol] 139 mmol/L Normal 136 - 145 [facility] Comment on above: Performed By: #### 2 39841 #### [facility],[address] [place] [address] 85334 Urea nitrogen [Mass/Vol] 6 mg/dL Low 7 - 18 [facility] Comment on above: Performed By: #### 2 76652 #### [facility],[address] [place] [address] 71583 CORONAVIRUS (SARS) ANTIGEN T ESTon 02-12-2023 EXTERNAL QC DONE? YES Normal [facility] Comment on above: Performed By: #### 2 04407 #### [facility],[address] [place] [address] 46214 INTERNAL CONTROL PASS Normal [facility] Comment on above: Performed By: #### 2 32406 #### [facility],[address],[facility] [address] SARS ANTIGEN Negative Normal NORMAL: NEGATIVE [facility] Comment on above: Performed By: #### 2 45342 #### [facility],[address] [place] [address],[facility] [address] SEND TO IC? NO Normal [facility] Comment on above: Result Comment: SARS -CoV-2 THIS TEST IS BEING USED UNDER THE FDA EUA PROCEDURE. THIS ASSAY HAS BEEN VALIDATED AT [facility] FOR USE WITH NASAL AND NASOPHARYNGEAL SWAB SPECIMENS. INTERPRETIVE DATA TEST RESULTS SHOULD ALWAYS BE CONSIDERED IN THE CONTEXT OF CLINICAL OBSERVATIONS AND EPIDEMIOLOGICAL DATA IN MAKING FINAL DIAGNOSIS AND PATIENT MANAGEMENT DECISIONS. PATIENT MANAGEMENT SHOULD FOLLOW CURRENT CDC GUIDELINES. THE NAEEM SARS ANTIGEN YUMIKO DOES NOT DIFFERENTIATE BETWEEN SARS-CoV & SARS-CoV-2. A POSITIVE TEST RESULT INDICATES THE PRESENCE OF SARS-CoV-2 NUCLEOCAPSID PROTEIN ANTIGEN, AND THE PATIENT IS INFECTED WITH THE VIRUS AND PRESUMED TO BE CONTAGIOUS. A NEGATIVE TEST RESULT FOR THIS TEST MEANS THAT SARS-CoV-2 NUCLEOCAPSID PROTEIN ANTIGEN WAS NOT PRESENT IN THE SPECIMEN ABOVE THE LIMIT OF DETECTION. HOWEVER, A NEGATIVE RESULT DOES NOT RULE OUT COVID-19 AND SHOULD NOT BE USED THE SOLE BASIS FOR TREATMENT OR PATIENT MANAGEMENT DECISIONS. A NEGATIVE RESULT DOES NOT EXCLUDE THE POSSIBILITY OF COVID-19. NEGATIVE RESULTS, FROM PATIENTS WITH SYMPTOM ONSET BEYOND FIVE DAYS, SHOULD BE TREATED PRESUMPTIVE AND CONFIRMATION WITH A MOLECULAR ASSAY, IF NECESSARY, FOR PATIENT MANAGEMENT, MAY BE PERFORMED. WHEN DIAGNOSTIC TESTING IS NEGATIVE, THE POSSIBLILTY OF A FALSE NEGATIVE RESULT SHOULD BE CONSIDERED IN THE CONTEXT OF A PATIENT'S RECENT EXPOSURES AND THE PRESENCE OF CLINICAL SIGNS AND SYMPTOMS CONSISTENT WITH COVID-19. THE POSSIBILITY OF A FALSE NEGATIVE RESULT SHOULD ESPECIALLY BE CONSIDERED IF THE PATIENT'S RECENT EXPOSURES OR CLINICAL PRESENTATION INDICATE THAT COVID-19 IS LIKELY, AND DIAGNOSTIC TESTS FOR OTHER CAUSES OF ILLNESS (e.g., OTHER RESPIRATORY ILLNESS) ARE NEGATIVE. IF COVID-19 IS STILL SUSPECTED BASED ON EXPOSURE HISTORY TOGETHER WITH OTHER CLINICAL FINDINGS, RE-TESTING SHOULD BE CONSIDERED BY HEALTHCARE PROVIDERS IN CONSULTATION WITH PUBLIC HEALTH AUTHORITIES. Performed By: #### 2 46280 #### [facility],[address] [place] [address] CHEST (PE PROTOCOL)on CT CHEST (PE PROTOCOL) [address] [address] Patient: LATOYA SOTELO Phone#: : 2005 Age: 17 Gender: F Pt. Type: ER Account: [id number] Location: 052 Ordering: AISHA DYE Exam Date: 02/12/2023/20:51 Family Phys: Charge Code: [id number] Physician: Pondera Order #: [id number] Dose#: 2.60 PROCEDURE: CT CHEST WITH CONTRAST FOR PE COMPARISON: None. INDICATIONS: Embolism. TECHNIQUE: After obtaining the patient's consent, CT images were obtained with non-ionic intravenous contrast material. Multi-planar images were created to optimize visualization of vascular anatomy with MPR/MIPS and 3D imaging. All CT scans at this facility use dose modulation, iterative reconstruction, and/or weight based dosing when appropriate to reduce radiation dose to as low as reasonably achievable. IV CONTRAST: Omnipaque 350,80ml TOTAL DOSE: 2.60 CTDIvol(mGy) FINDINGS: VASCULATURE: Normal. No visible pulmonary arterial thrombus or attenuation. AORTA: Normal. No aneurysm or dissection. LUNGS: Normal. No visible pulmonary disease. TABITHA: Normal. No mass or adenopathy. MEDIASTINUM: Normal. No mass or adenopathy. CARDIAC: Normal. No enlargement, pericardial thickening, or significant calcification. PLEURA: Normal. No mass or effusion. CHEST WALL: Normal. No mass or axillary adenopathy. LIMITED ABDOMEN: Normal. Limited images of the upper abdomen are unremarkable. BONES: Normal. No bony lesion or fracture. OTHER: Negative. CONCLUSION: 1. There is no evidence of pulmonary embolus. 2. There is no evidence of acute pulmonary abnormality. Dictated by: Jennifer Tubbs MD on 02/12/2023 at 21:15 Continued Report - Page 2 of 2 Patient: LATOYA SOTELO Phone#: : 2005 Age: 17 Gender: F Pt. Type: ER Account: [id number] Location: [facility] Ordering: AISHA DYE Exam Date: 02/12/2023/20:51 Family Phys: Charge Code: [id number] Physician: Pondera Order #: [id number] Dose#: 2.60 Approved by: Jennifer Tubbs MD on 02/12/2023 at 21:18 Normal [facility] D-DIMER, QUANTITATIVEon 01-0 D-DIMER QUANT 335 ng/ml High 0 - 230 [facility] Comment on above: Performed By: #### 2 24516 #### [facility],[address] [place], [place] [id number] D-DIMER, QUANTITATIVE Normal [facility] Comment on above: Result Comment: XUAN T D-DIMER Performed By: #### 2 25883 #### [facility],[address] [place], [place] [id number] INFLUENZA VIRUS RAPID A/Bon 02-12-2023 INFLUENZA VIRUS RAPID A/B INFLUENZA A NEGATIVE INFLUENZA B NEGATIVE INTERNAL NEG QC PASS INTERNAL POS QC PASS EXTERNAL QC DONE? YES SEND TO IC? NO A NEGATIVE TEST RESULT DOES NOT EXCLUDE INFECTION WITH INFLUENZA A OR B. THEREFORE, THE RESULTS OBTAINED FROM THIS FLU TEST SHOULD BE USED IN CONJUCTION WITH CLINICAL FINDINGS TO MAKE AN ACCURATE DIAGNOSIS. A POSITIVE RESULT DOES NOT RULE OUT CO-INFECTIONS WITH OTHER PATHOGENS OR IDENTIFY ANY SPECIFIC INFLUENZA A VIRUS SUBTYPE.CO-INFECTION WITH INFLUENZA A AND B IS RARE. IT IS RECOMMENDED THAT DUAL POSITIVE RESULTS BE CONFIRMED BY VIRAL CULTURE OR AN FDA-CLEARED INFLUENZA A AND B MOLECULAR ASSAY. INDIVIDUALS WHO HAVE RECEIVED NASALLY ADMINISTERED INFLUENZA A VACCINE MAY TEST POSITIVE IN COMMERCIALLY AVAILABLE INFLUENZA RAPID DIAGNOSTIC TESTS FOR UP TO THREE DAYS. RESULT CRITICAL? NO Normal [facility] Comment on above: Performed By: #### 2 34662 #### [facility],[address] [place], [place] [id number] TROPONIN I, HIGH SENSITIVITY on 02-12-2023 HS TROPONIN <4.0 Normal 0.0 - 51.4 [facility] Comment on above: Performed By: #### 2 62384 #### [facility],[address] [place] [address] 33238 URINALYSISon 02-12-2023 Amorphous 1+ Normal [facility] Comment on above: Performed By: #### 2 08397 #### [facility],[address] [place] [address] 87437 Bacteria NONE Normal [facility] Comment on above: Performed By: #### 2 71310 #### [facility],[address] [place] [address] 38052 Bilirubin Ql (U) Negative Normal NORMAL: NEGATIVE [facility] Comment on above: Performed By: #### 2 71486 #### [facility],[address] [place], [place] [id number] Casts NONE Normal [facility] [facility] Comment on above: Performed By: #### 2 84596 #### [facility],[address] [place], [place] [phone] Clarity (U) clear Normal NORMAL: CLEAR [facility] Comment on above: Performed By: #### 2 46932 #### [facility],[address] [place] [address] 78406 Color (U) p.yel Normal NORMAL: YELLOW [facility] Comment on above: Performed By: #### 2 43324 #### [facility],[address] [place] [address] 27991 Crystals LM Nom (Urine sed) NONE Normal [facility] Comment on above: Performed By: #### 2 56682 #### [facility],[address] [place] [address] 63440 Epi Cells MODERATE Normal [facility] Comment on above: Performed By: #### 2 21251 #### [facility],[address] [place] [address] 42696 Glucose Ql (U) NORM Normal NORMAL: NORMAL [facility] Comment on above: Performed By: #### 2 13375 #### [facility],[address] [place] [address] 49448 Hemoglobin Ql (U) 10 Abnormal NORMAL: NEGATIVE [facility] Comment on above: Performed By: #### 2 89694 #### [facility],[address] [place] [address] 55247 Ketone Negative Normal NORMAL: NEGATIVE [facility] Comment on above: Performed By: #### 2 42887 #### [facility],[address] [place] [address] 88330 Leukocytes 25 Abnormal NORMAL: NEGATIVE [facility] Comment on above: Performed By: #### 2 51346 #### [facility],[address] [place] [address] 29493 Mucous NONE Normal [facility] Comment on above: Performed By: #### 2 42248 #### [facility],[address] [place] [address] 47260 Nitrite Ql (U) Negative Normal NORMAL: NEGATIVE [facility] Comment on above: Performed By: #### 2 31080 #### [facility],[address] [place] [address] 41155 pH (U) 8 [pH] Normal NORMAL: 5.0-8.0 [facility] Comment on above: Performed By: #### 2 18271 #### [facility],[address] [place] [address] 83974 Protein Ql (U) Negative Normal NORMAL: NEGATIVE [facility] Comment on above: Performed By: #### 2 94100 #### [facility],[address] [place] [address] 12306 Rbc 0-5 Normal 0-3/hpf [facility] Comment on above: Performed By: #### 2 74801 #### [facility],[address] [place] [address] 19161 Sp [place] 1.010 Normal NORMAL: 1.010-1.030 [facility] Comment on above: Performed By: #### 2 27436 #### [facility],[address] [place] [address] 61556 Specimen Type UNSPECIFIED Normal [facility] Comment on above: Performed By: #### 2 47247 #### [facility],[address] [place] [address] 13631 Urinalysis dipstick W Reflex Microscopic panel (U) SEE BELOW Normal [facility] Comment on above: Result Comment: MICR OSCOPIC Performed By: #### 2 50876 #### [facility],[address] [place] [address] 60198 Urobilinog NORM Normal NORMAL: NORMAL [facility] Comment on above: Performed By: #### 2 78065 #### [facility],[address] [place], [place] [phone] Wbc 1-5 Normal 0-5/hpf [facility] Comment on above: Performed By: #### 2 17426 #### [facility],[address] [place] [address] 64168 Yeast NONE Normal [facility] Comment on above: Performed By: #### 2 39594 #### [facility],[address] [place] [address] 06525 GC/CHLAM AMPLIFICATION [CCL] on 01-24-2023 Chlamydia Amplification Negative Normal Negative for Chlamydia tr [facility] Comment on above: Result Comment: For screening asymptomatic women, a vaginal swab specimen(APTIMA vaginal swab 355277) is optimal. Urine specimens have reduced sensitivity for Chlamydia trachomatis or Neisseria gonorrhoeae infection in female patients without symptoms. SOURCE: URINE [facility] [address] [place] [address] Harvey Parmar III, M.D. [id number] Performed By: #### 2 45245 #### [facility],[address] [place] [address] 11945 GCAMP Negative Normal Negative for Neisseria go [facility] Comment on above: Performed By: #### 2 44625 #### [facility],[address] [place] [address] 09889 HEP B SURFACE AG [CCL]on Hepatitis B Surf. Ag Negative Normal Negative [facility] Comment on above: Result Comment: [place] [address] [place] [address] Harvey Parmar III, M.D. [id number] Performed By: #### 2 32207 #### [address] [address] RPR [CCL]on 01-24-2023 RESULT CRITICAL? NO Normal [facility] Comment on above: Performed By: #### 2 74834 #### [address] [address] Reagin Ab RPR Ql (S) Non-Reactive Normal Nonreactive [facility] Comment on above: Result Comment: Rapi d plasma reagin (RPR) test detects non-treponemal antibodies. RPR may be reactive in a variety of infectious and non-infectious conditions. Correlation with clinical picture and with treponemal antibody results is required for final interpretation. [facility] [employer] [facility] [place] [address] Harvey Parmar III, M.D. [id number] Performed By: #### 2 25033 #### [facility],[address] [place] [address] 00722 RUBELLA IgG ANTIBODY [CCL]on 01-24-2023 Rubella IgG Ab, Qual Negative Abnormal Positive [facility] Comment on above: Result Comment: The result suggests no history of Rubella vaccination or exposure to Rubella virus, however, some individuals with past history of Rubella vaccination may test negative using this test as immunity to Rubella virus wanes over time after vaccination. Please correlate with vaccination history if applicable. [facility] [employer] [facility] [place] [address] Harvey Parmar III, M.D. [id number] Performed By: #### 2 07231 #### [facility],[address] [place] [address] 52331 BB TYPE & SCREENon 3 ABO B Normal [facility] Comment on above: Performed By: #### 2 58383 #### [facility],[address] [place], [place] [phone] ANTIBODY SCR Negative Normal [facility] Comment on above: Performed By: #### 2 34867 #### [facility],[address] [place] [address] BB TYPE & SCREEN Normal [facility] Comment on above: Result Comment: TYPE , Rh, AND SCREEN Performed By: #### 2 59414 #### [facility],[address] [place] [address] Rh Nom (Bld) Positive Normal [facility] Comment on above: Performed By: #### 2 28794 #### [facility],[address] [place], [place] [phone] CBC + DIFFon 01-23-2023 Baso # 0.10 x10EE3/UL Normal 0.00 - 0.10 [facility] Comment on above: Performed By: #### 2 69056 #### [facility],[address] [place] [address] 64416 Basophils/100 WBC (Bld) 1.1 % Normal 0.0 - 2.0 [facility] Comment on above: Performed By: #### 2 64962 #### [facility],[address] [place] [address] 93526 CBC + DIFF Normal [facility] Comment on above: Result Comment: CBC- COMPLETE BLOOD COUNT Performed By: #### 2 80870 #### [facility],[address] [place] [address] 88899 EO # 0.20 x10EE3/UL Normal 0.00 - 0.50 [facility] Comment on above: Performed By: #### 2 68936 #### [facility],[address] [place], [place] [phone] Eosinophils/100 WBC (Bld) 2.0 % Normal 0.0 - 7.0 [facility] Comment on above: Performed By: #### 2 49069 #### [facility],[address] [place] [address] Erythrocyte distribution width (RBC) [Ratio] 13.3 % Normal 12.0 - 15.6 [facility] Comment on above: Performed By: #### 2 72572 #### [facility],[address] [place] [address] Hematocrit (Bld) [Volume fraction] 35.1 % Normal 34.0 - 46.0 [facility] Comment on above: Performed By: #### 2 17219 #### [place] [address] Hemoglobin (Bld) [Mass/Vol] 11.9 g/dL Low 12.0 - 16.0 [facility] Comment on above: Performed By: #### 2 14420 #### [facility],[address] [place] [address] Lymph # 2.30 x10EE3/UL Normal 0.80 - 2.80 [facility] Comment on above: Performed By: #### 2 11957 #### [facility],[address] [place], [place] [phone] Lymphocytes/100 WBC (Bld) 22.8 % Normal 20.0 - 45.0 [facility] Comment on above: Performed By: #### 2 86318 #### [place] [id number] MANUAL DIFF N/A Normal [facility] Comment on above: Performed By: #### 2 47355 #### [place] [address] MCH (RBC) [Entitic mass] 31 pg Normal 27 - 33 [facility] Comment on above: Performed By: #### 2 64598 #### [place] [address] MCHC 34 X10 3 Normal 32 - 36 [facility] Comment on above: Performed By: #### 2 95596 #### [facility],[address] [place] [address] MCV (RBC) [Entitic vol] 91 fL Normal 80 - 99 [facility] Comment on above: Performed By: #### 2 27028 #### [place] [address] [place] # 0.50 x10EE3/UL Normal 0.20 - 1.00 [facility] Comment on above: Performed By: #### 2 79122 #### [place] [address] MONOS % 4.6 % Normal 0.0 - 10.0 [facility] Comment on above: Performed By: #### 2 61043 #### [place] [address] Morphology [place] (Bld) [Interp] N/A Normal [facility] Comment on above: Result Comment: {CD] Performed By: #### 2 05403 #### [place] [address] Neut # 7.10 x10EE3/UL Normal 1.50 - 7.10 [facility] Comment on above: Performed By: #### 2 56703 #### [place] [address] Neutrophils/100 WBC (Bld) 69.5 % Normal 46.0 - 76.0 [facility] Comment on above: Performed By: #### 2 04475 #### [place] [id number] PLATELET 252 x10EE3/UL Normal 150 - 450 [facility] Comment on above: Performed By: #### 2 12815 #### [facility],[address] [place] [address] 84248 Platelet mean volume (Bld) [Entitic vol] 9.2 fL Normal 6.6 - 10.5 [facility] Comment on above: Result Comment: AUTO MATED DIFFERENTIAL Performed By: #### 2 70411 #### [facility],[address] [place] [address] 59564 RBC 3.87 x 10EE6/UL Low 4.10 - 5.30 [facility] Comment on above: Performed By: #### 2 96760 #### [facility],[address] [place] [address] 78687 WBC 10.2 x 10EE3/UL Normal 4.5 - 10.8 [facility] Comment on above: Performed By: #### 2 04957 #### [facility],[address] [place] [address] 03451 T4-FREE (FREE THYROXINE)on 03-26-2022 Free T4 [Mass/Vol] 0.97 ng/dL Normal 0.78 - 1.46 [facility] Comment on above: Result Comment: P otential of falsely elevated results when biotin concentrations are > 10 ng/mL. Performed By: #### 2 40110 #### [facility],[address] [place] [address] 86628 TSHon 01-23-2023 TSH Qn 0.65 m[IU]/L Normal 0.51 - 4.13 [facility] Comment on above: Performed By: #### 2 54583 #### [facility],[address] [place] [address] 55585 VAGINAL PATHOGEN DNA DIRECT PROBES[BERT]on 01-23-2023 VAGINAL PATHOGEN DNA DIRECT PROBES[BERT] Normal [facility] Comment on above: Result Comment: _VAG INAL PATHOGENS DNA DIRECT PROBES [CCL]_ SEE SEPERATE REPORT Performed By: #### 2 07769 #### [facility],[address] [place] [address] OB INITIAL >or= 14 WEEKS; 1st GESTATon 01-10-2023 US OB INITIAL >or= 14 WEEKS; 1st [place] [address] Patient: LATOYA SOTELO Phone#: : 2005 Age: 17 Gender: F Pt. Type: Out Account: [id number] Location: [facility] Ordering: KENNETH WRIGHT Exam Date: 01/10/2023/14:01 Family Phys: Charge Code: [id number] Physician: [place] Order #: [id number] Dose#: PROCEDURE: OB INITIAL >14 WEEKS ULTRASOUND, TRANSABDOMINAL COMPARISON: None. INDICATIONS: Anatomy TECHNIQUE: Complete sonographic examination for obstetrical and evaluation were completed by transabdominal ultrasound. FINDINGS: NUMBER: Single. POSITION: Vertex. AMNIOTIC FLUID VOLUME: Normal for age with MELINA of 15.2 cm. PLACENTA LOCATION: Posterior. BIPARIETAL DIAMETER: 20 weeks 5 days HEAD CIRCUMFERENCE: 20 weeks 0 days ABD CIRCUMFERENCE: 19 weeks 5 days FEMUR LENGTH: 20 weeks 1 day ESTIMATED WEIGHT: 324 grams/11 ounces CERVICAL LENGTH: 3.6 cm HEART RATE: 139 bpm ANATOMY: The following structures are normal for age unless specified below: Nose/lips, ventricles, posterior fossa, C/T/L spine, four extremities, four chamber heart, thorax, abdomen, 3-vessel cord, cord insertion, stomach, kidneys, and bladder. ABNORMALITIES/OTHER: None. CLINICAL GA: 21 weeks 6 days CLINICAL ISAC: May 17, 2023 ULTRASOUND GA: 20 weeks 1 day ULTRASOUND ISAC: May 29, 2023 CONCLUSION: 1. SL IUP 20 weeks 1 day, ISAC May 29, 2023 Dictated by: Jennifer Tubbs MD on 01/10/2023 at 17:36 Approved by: Jennifer Tubbs MD on 01/10/2023 at 17:45 Normal [facility] RPRon 11-02-2022 Reagin Ab RPR Ql (S) Non-Reactive Normal Non-Reactive [facility] ([place]) Comment on above: Result Comment: The RPR test is a non-treponemal assay useful as an aid in the diagnosis of primary and secondary syphilis. It converts to positive generally within 2 weeks after the appearance of a lesion. This test is also useful for monitoring response to antibiotic therapy. A positive RPR screening test will be followed by the FTA ABS test. False positive RPR tests may occur in 1) patients with underlying autoimmune disorders, 2) elderly patients, 3) , and 4) other conditions with abnormal serum globulins. Performed By: #### C BC, ANSG, ANEU, ABOG, ADIFF ####[place] [address]#### HBSAG, RUBIS, HCV1, RPR ####[address] [address] RUBISon 11-02-[address] Positive Normal Positive [facility] ([place]) Comment on above: Result Comment: This immune status assay detects IgM and/or IgG antibody to Rubella. Interpret results in conjunction with clinical history. POS: Antibody detected; exposure at undetermined recent or distant time. If clinically indicated, order Rubella IGM to rule out recent infection. NEG: No antibody detected. Performed By: #### C BC, ANSG, ANEU, ABOG, ADIFF #### [place] [address] #### HBSAG, RUBIS, HCV1, RPR #### [address] [address] .Auto Diffon 11-01-2022 Basophil, Absolute 0.1 10 3/mcL Normal 0.0-0.2 [facility] ([place]) Comment on above: Performed By: #### C BC, ANSG, ANEU, ABOG, ADIFF #### [place] [address] #### HBSAG, RUBIS, HCV1, RPR #### [address] [address] Basophils/100 WBC (Bld) 0.5 % Normal 0.0-2.5 [facility] ([place]) Comment on above: Performed By: #### C BC, ANSG, ANEU, ABOG, ADIFF #### [place] [address] #### HBSAG, RUBIS, HCV1, RPR #### [address] [address] Eosinophil, Absolute 0.3 10 3/mcL Normal 0.0-0.4 [facility] ([place] Comment on above: Performed By: #### C BC, ANSG, ANEU, ABOG, ADIFF #### [place] [address] #### HBSAG, RUBIS, HCV1, RPR #### [address] [address] Eosinophils/100 WBC (Bld) 2.4 % Normal 0.0-7.0 [facility] ([place]) Comment on above: Performed By: #### C BC, ANSG, ANEU, ABOG, ADIFF #### [place] [address] #### HBSAG, RUBIS, HCV1, RPR #### [address] [address] Lymphocyte, Absolute 2.3 10 3/mcL Normal 0.8-3.9 [facility] ([place] Comment on above: Performed By: #### C BC, ANSG, ANEU, ABOG, ADIFF #### [place] [address] #### HBSAG, RUBIS, HCV1, RPR #### [address] [address] Lymphocytes/100 WBC (Bld) 18.5 % Normal 10.0-50.0 [facility] ([place]) Comment on above: Performed By: #### C BC, ANSG, ANEU, ABOG, ADIFF #### [place] [address] #### HBSAG, RUBIS, HCV1, RPR #### [address] [address] Monocyte, Absolute 0.7 10 3/mcL Normal 0.2-1.0 [facility] ([place]) Comment on above: Performed By: #### C BC, ANSG, ANEU, ABOG, ADIFF #### [address] [address] #### HBSAG, RUBIS, HCV1, RPR #### [address] [address] Monocytes/100 WBC (Bld) 5.2 % Normal 1.7-13.0 [facility] ([place]) Comment on above: Performed By: #### C BC, ANSG, ANEU, ABOG, ADIFF #### [place] [address] #### HBSAG, RUBIS, HCV1, RPR #### [address] [address] Neutrophils/100 WBC (Bld) 73.4 % Normal 37.0-80.0 [facility] ([place]) Comment on above: Performed By: #### C BC, ANSG, ANEU, ABOG, ADIFF #### [place] [address] #### HBSAG, RUBIS, HCV1, RPR #### [address] [address] .NEUABSon 11-01-2022 Neutrophil, Absolute 9.1 10 3/mcL High 2.9-6.2 [facility] ([place] Comment on above: Performed By: #### C BC, ANSG, ANEU, ABOG, ADIFF #### [place] [address] #### HBSAG, RUBIS, HCV1, RPR #### [address] [address] CBCon 11-01-2022 Erythrocyte distribution width (RBC) [Ratio] 13.6 % Normal 11.5-14.5 [facility] ([place]) Comment on above: Performed By: #### C BC, ANSG, ANEU, ABOG, ADIFF #### [place] [address] #### HBSAG, RUBIS, HCV1, RPR #### [place] [address] Hematocrit (Bld) [Volume fraction] 39.1 % Normal 37.0-47.0 [facility] ([place] Comment on above: Performed By: #### C BC, ANSG, ANEU, ABOG, ADIFF #### [place] [address] #### HBSAG, RUBIS, HCV1, RPR #### [place] [address] Hgb 13.3 G/dL Normal 12.0-16.0 [facility] ([place] Comment on above: Performed By: #### C BC, ANSG, ANEU, ABOG, ADIFF #### [place] [address] #### HBSAG, RUBIS, HCV1, RPR #### [place] [address] MCH (RBC) [Entitic mass] 29.7 pg Normal 27.0-31.2 [facility] ([place] Comment on above: Performed By: #### C BC, ANSG, ANEU, ABOG, ADIFF #### [place] [address] #### HBSAG, RUBIS, HCV1, RPR #### [place] [address] MCHC 34.0 G/dL Normal 33.0-37.0 [facility] ([place] Comment on above: Performed By: #### C BC, ANSG, ANEU, ABOG, ADIFF #### [place] [address] #### HBSAG, RUBIS, HCV1, RPR #### [place] [address] MCV (RBC) [Entitic vol] 87.3 fL Normal 80.0-94.0 [facility] ([place] Comment on above: Performed By: #### C BC, ANSG, ANEU, ABOG, ADIFF #### [place] [address] #### HBSAG, RUBIS, HCV1, RPR #### [place] [address] Platelet 216 10 3/mcL Normal 130-400 [facility] ([place] Comment on above: Performed By: #### C BC, ANSG, ANEU, ABOG, ADIFF #### [place] [address] #### HBSAG, RUBIS, HCV1, RPR #### [place] [address] Platelet mean volume (Bld) [Entitic vol] 8.7 fL Normal 7.4-10.4 [facility] ([place] Comment on above: Performed By: #### C BC, ANSG, ANEU, ABOG, ADIFF #### [place] [address] #### HBSAG, RUBIS, HCV1, RPR #### [place] [address] RBC 4.48 10 6/mcL Normal 4.20-5.40 [facility] ([place] Comment on above: Performed By: #### C BC, ANSG, ANEU, ABOG, ADIFF #### [place] [address] #### HBSAG, RUBIS, HCV1, RPR #### [place] [address] WBC 12.5 10 3/mcL High 4.6-10.8 [facility] ([place] Comment on above: Performed By: #### C BC, ANSG, ANEU, ABOG, ADIFF #### [place] [address] #### HBSAG, RUBIS, HCV1, RPR #### [place] [address] Gel ABOon 11-01-2022 ABO/Rh Interp Positive Invalid Interpretation Code [facility] ([place] Comment on above: Performed By: #### C BC, ANSG, ANEU, ABOG, ADIFF #### [address] [address] #### HBSAG, RUBIS, HCV1, RPR #### [place] [address] Gel ABSon 11-01-2022 Antibody Screen Gel Negative Normal [facility] ([place]) Comment on above: Performed By: #### C BC, ANSG, ANEU, ABOG, ADIFF #### [place] [address] #### HBSAG, RUBIS, HCV1, RPR #### [place] [address] HBSAGon 11-01-2022 Hep B Surf Ag Non-Reactive Normal Non-Reactive [facility] ([place] Comment on above: Performed By: #### C BC, ANSG, ANEU, ABOG, ADIFF #### [place] [address] #### HBSAG, RUBIS, HCV1, RPR #### [place] [address] HCVon 11-01-2022 Hep C Ab Non-Reactive Normal Non-Reactive [facility] ([place] Comment on above: Performed By: #### C BC, ANSG, ANEU, ABOG, ADIFF #### [place] [address] #### HBSAG, RUBIS, HCV1, RPR #### [place] [address] Hep C Ab Int [facility] ([place]) Comment on above: Result Comment: Nonr eactive: Samples with a value < 0.80 are considered nonreactive (negative) for antibodies to HCV. A negative test result does not exclude the possibility of exposure to or infection with HCV. HCV antibodies may be undetectable in some stages of the infection and in some clinical conditions. See Interp Performed By: #### C BC, ANSG, ANEU, ABOG, ADIFF #### [facility] [address] [place], [place] [address] #### HBSAG, RUBIS, HCV1, RPR #### [place] [address] [place] [address] HIVRPon 11-01-2022 HIV p24 Antigen Non-Reactive Normal Non-Reactive [facility] ([place]) Comment on above: Result Comment: Dete ction of p24 may be inhibited by biotin in the sample, causing false negative results in acute infection. Therefore do not test samples from patients who are taking biotin. Performed By: #### H IVRP ####[id number] [place], [place] [address] HIV P24 Int Non-Reactive Invalid Interpretation Code [facility] ([place]) Comment on above: Performed By: #### H IVRP ####[id number] [place], [place] [address] Rapid HIV 1/2 Antibody Non-Reactive Normal Non-Reactiv e [facility] ([place]) Comment on above: Performed By: #### H IVRP ####[id number] [place], [place] [address] RHIV 1/2 Ab Int Non-Reactive Invalid Interpretation Code [facility] ([place]) Comment on above: Performed By: #### H IVRP ####[address] [place], [place] [address] CTPCRon 10-20-2022 C. trachomatis Interp Normal See CT Interp N [facility] ([place] Comment on above: Result Comment: C. t rachomatis DNA not detected. Specimen is presumptive negative for C. trachomatis. A negative result does not preclude C. trachomatis infection because results depend on adequate specimen collection, absence of inhibitors, and sufficient DNA to be detected. See CT Interp N Performed By: #### N GPCR1, CTPCR ####[address] [place], [place] [address] C.trachomatis PCR Negative Normal Negative [facility] ([place] Comment on above: Result Comment: Azeem ron (PCR) assay performed on the [employer] 4800 system. Performed By: #### N GPCR1, CTPCR ####[address] [place], [place] [address] Chlam Source Cervix Normal [facility] ([place] Comment on above: Performed By: #### N GPCR1, CTPCR ####[address] [place], [place] [address] [id number] 10-20-2022 GC PCR Source Cervix Normal [facility] ([place] Comment on above: Performed By: #### N GPCR1, CTPCR ####[address] [place], [place] [address] N. gonorrhoeae (PCR) Negative Normal Negative [facility] ([place]) Comment on above: Result Comment: Azeem ortegaar (PCR) assay performed on the [employer] 4800 System. Performed By: #### N GPCR1, CTPCR ####[address] [place] [address] N. gonorrhoeae Interp Normal See NG Interp N [facility] ([place] Comment on above: Result Comment: N. g onorrhoeae DNA not detected. Specimen is presumptive negative for N. gonorrhoeae. A negative result does not preclude Neisseria gonorrhoeae infection because results depend on adequate specimen collection, absence of inhibitors, and sufficient DNA to be detected. See NG Interp N Performed By: #### N GPCR1, CTPCR ####[address] [place] [address] LABORATORYOrdered By: Malka Arizmendi on 10-18-2022 C. trachomatis DNA ONESIMO+probe Ql (Unsp spec) Negative 2 (10/18/22 4:23 PM) Invalid Interpretation Code Negative AH Auto Viro/Sero SS Comment on above: Interpretive Data: M jose robertolar (PCR) assay performed on the [employer] 4800 system. C. trachomatis DNA ONESIMO+probe Ql (Unsp spec) C. trachomatis DNA not detected. Specimen is presumptive negative forC. trachomatis.A negative result does not preclude C. trachomatis infection becauseresults depend on adequate specimen collection, absence of inhibitors,and sufficient DNA to be detected. Invalid Interpretation Code See CT Interp N AH Auto Viro/Sero SS N. gonorrhoeae DNA ONESIMO+probe Ql (Unsp spec) Negative 1 (10/18/22 4:23 PM) Invalid Interpretation Code Negative Auto Viro/Sero SS Comment on above: Interpretive Data: M olecular (PCR) assay performed on the [employer] 4800 System. N. gonorrhoeae DNA ONESIMO+probe Ql (Unsp spec) N. gonorrhoeae DNA not detected. Specimen is presumptive negative forN. gonorrhoeae. A negative result does not preclude Neisseria gonorrhoeaeinfection because results depend on adequate specimen collection, absenceof inhibitors, and sufficient DNA to be detected. Invalid Interpretation Code See NG Interp N Auto Viro/Sero SS Laboratory - Specimen inform ationOrdered By: Malka Arizmendi on 10-18-2022 Specimen source Nom (Unsp spec) Cervix (10/18/22 4:23 PM) Invalid Interpretation Code Auto Viro/Sero SS Absolute lymphocyte countOrd ered By: Sania Packer on 09-15-2022 Lymphocytes Auto (Unsp spec) [#/Vol] 2.83 10*3/uL 0.83-4.51 [facility] Basophil percentageOrdered B y: Sania Packer on 09-15-2022 Basophil percentage 0-5 SEEN /hpf 0-5 [facility] Basophils/100 WBC (Bld) 0.5 % 0-1 [facility] Bilirubin [Mass/Vol] 0.80 mg/dL 0.20-1.00 [facility] Comment on above: For patients on eltr ombopag therapy, use of Dimension [place] TBIL is not recommended. Chloride [Moles/Vol] 106 mmol/L 98-107 [facility] Eosinophils/100 WBC (Bld) 0.8 % 0-3 [facility] Glucose [Mass/Vol] 84 mg/dL 74-106 [facility] Neutrophils (Bld) [#/Vol] 5.7 10*3/uL 2.0-7.7 [facility] Neutrophils/100 WBC (Bld) 62.0 % 34-64 [facility] Potassium [Moles/Vol] 3.5 mmol/L 3.5-5.1 [facility] Protein [Mass/Vol] 7.8 g/dL 6.4-8.2 [facility] Sodium [Moles/Vol] 137 mmol/L 136-145 [facility] WBC (Bld) [#/Vol] 9.2 10*3/uL 4.5-13.0 [facility] Beta hCG serum qualOrdered B y: Sania Packer on 09-15-2022 Beta HCG ( test) Ql Negative [facility] Comment on above: TEST is *P OSITIVE* Bilirubin Test strip Ql (U)O rdered By: Sania Packer on 09-15-2022 Bilirubin Ql (U) Negative Negative [facility] Blood erythrocytes count (nu mber/volume)Ordered By: Sania Packer on 09-15-2022 RBC (Bld) [#/Vol] 5.09 10*6/uL 4.1-4.8 [facility] Blood hemoglobin measurement (mass/volume)Ordered By: Sania Packer on 09-15-2022 Hemoglobin (Bld) [Mass/Vol] 14.7 g/dL 12.0-15.0 [facility] Blood lymphocytes/100 leukoc ytesOrdered By: Sania Packer on 09-15-2022 Lymphocytes/100 WBC (Bld) 30.8 % 25-45 [facility] Blood monocytes/100 leukocyt esOrdered By: Sania Packer on 09-15-2022 Monocytes/100 WBC (Bld) 5.5 % 3-6 [facility] Blood platelet mean volumeOr dered By: Sania Packer on 09-15-2022 Platelet mean volume (Bld) [Entitic vol] 10.9 fL 6.2-12.0 [facility] Determination of erythrocyte mean corpuscular volume (MCV)Ordered By: Sania Packer on 09-15-2022 MCV (RBC) [Entitic vol] 88.8 fL 78-96 [facility] Direct bilirubinOrdered By: Sania Packer on 09-15-2022 Bilirubin.direct [Mass/Vol] 0.22 mg/dL 0.00-0.30 [facility] Hematocrit Auto (Bld) [Volum e fraction]Ordered By: Sania Packer on 09-15-2022 Hematocrit (Bld) [Volume fraction] 45.2 % 37-46 [facility] Ketones Test strip Ql (U)Ord ered By: Sania Packer on 09-15-2022 Ketones Ql (U) 5 mg/dl Negative [facility] Laboratory - Chemistry and C hemistry - challengeOrdered By: Sania Packer on 09-15-2022 ALP [Catalytic activity/Vol] 93 U/L 47-119 [facility] ALT [Catalytic activity/Vol] 18 U/L 13-56 [facility] CO2 [Moles/Vol] 25.0 mmol/L 21.0-32.0 [facility] Globulin (S) [Mass/Vol] 3.3 g/dL 2.2-4.2 [facility] Urea nitrogen/Creatinine [Mass ratio] 6.2 mg/mg 10-20 [facility] Laboratory - Hematology and Cell countsOrdered By: Sania Packer on 09-15-2022 Erythrocyte distribution width (RBC) [Entitic vol] 41.9 fL 35.1-43.9 [facility] Erythrocyte distribution width (RBC) [Ratio] 12.8 % 11.6-14.6 [facility] Immature granulocytes/100 WBC (Bld) 0.400 % 0.0-0.9 [facility] Comment on above: IG% - Immature Granu locytes (promyelocytes, myelocytes and metamyelocytes) > 1% indicates that a LEFT SHIFT is Present. MCH (RBC) [Entitic mass] 28.9 pg 25.0-35.0 [facility] Nucleated RBC/100 WBC (Bld) [Ratio] 0 % 0-5 [facility] MCHC Auto (RBC) [Mass/Vol]Or dered By: Sania Packer on 09-15-2022 MCHC (RBC) [Mass/Vol] 32.5 g/dL 32-36 [facility] Mucus LM Ql (Urine sed)Order ed By: Sania Packer on 09-15-2022 Mucus Ql (Urine sed) RARE /hpf [facility] Nitrite Test strip Ql (U)Ord ered By: Sania Packer on 09-15-2022 Nitrite Ql (U) Negative Negative [facility] No Panel InformationOrdered By: Sania Packer on 09-15-2022 Estimated Creatinine Clearance Calc 80.85 ml/min [facility] Estimated GFR (MDRD) Amer 120 mL/min >60 [facility] Comment on above: GFR Calc Estimated GFR (MDRD) Non-Af Amer 99 mL/min >60 [facility] Comment on above: Non- GFR Calc Platelets bldOrdered By: Catherine Packer on 09-15-2022 Platelets (Bld) [#/Vol] 213 10*3/uL 150-450 [facility] Protein Test strip Ql (U)Ord ered By: Sania Packer on 09-15-2022 Protein Ql (U) 15 mg/dl Negative [facility] Serum or plasma albumin felicitas urement (mass/volume)Ordered By: Sania Packer on 09-15-2022 Albumin [Mass/Vol] 4.5 g/dL 3.2-5.0 [facility] Serum or plasma calcium felicitas urement (mass/volume)Ordered By: Sania Packer on 09-15-2022 Calcium [Mass/Vol] 9.3 mg/dL 8.5-10.1 [facility] Serum or plasma choriogonado tropin detectionOrdered By: Sania Packer on 09-15-2022 HCG ( test) Ql 228 mIU/mL <4 [facility] Comment on above: hCG levels with Gest ational AgeGestational Age hCG mIU/mL (IU/L)0.2 - 1 week 5 - 501-2 weeks 50 - 5002-3 weeks 100 - 37315-8 weeks 500 - 556449-6 weeks 1000 - 017220-8 weeks 97189 - 100,0006-8 weeks 46951 - 200,0002-3 months 93985 - 100,000 Serum or plasma creatinine m easurement (mass/volume)Ordered By: Sania Packer on 09-15-2022 Creatinine [Mass/Vol] 0.80 mg/dL 0.55-1.02 [facility] Comment on above: The validity of the calculated GFR & GFRAA in patients over 70 years has not been determined. Clinical correlation is essential. Serum or plasma urea nitroge n measurement (mass/volume)Ordered By: Sania Packer on 09-15-2022 Urea nitrogen [Mass/Vol] 5 mg/dL 7-18 [facility] Squamous epithelial cells de tection in urine sediment by light microscopyOrdered By: Sania Packer on 09-15-2022 Epithelial cells.squamous LM Ql (Urine sed) 0-5 SEEN /hpf 5-10 [facility] Thin prep Papanicolaou smear with manual screeningOrdered By: Sania Packer on 09-15-2022 Thin prep Papanicolaou smear with manual screening 10 U/L 15-37 [facility] Thin prep Papanicolaou smear with manual screening 6 5-15 [facility] Urine blood detectionOrdered By: Sania Packer on 09-15-2022 RBC Ql (U) Negative Negative [facility] RBC Ql (U) 0 SEEN /hpf 0-5 [facility] Urine clarityOrdered By: Catherine Packer on 09-15-2022 Clarity (U) Clear Clear [facility] Urine color determinationOrd ered By: Sania Packer on 09-15-2022 Color (U) Yellow Yellow [facility] Urine glucose detectionOrder ed By: Sania Packer on 09-15-2022 Glucose Ql (U) Normal mg/dl Normal [facility] Urine leukocyte esterase det ection by dipstickOrdered By: Sania Packer on 09-15-2022 Leukocyte esterase Test strip Ql (U) 25 /ul Negative [facility] Urine pHOrdered By: Sania Packer on 09-15-2022 pH (U) 8.0 [pH] 5.0 - 8.0 [facility] Urine sediment bacteria coun t by microscopy (number/high power field)Ordered By: Sania Packer on 09-15-2022 Bacteria LM.HPF (Urine sed) [#/Area] RARE /hpf None Seen [facility] Urine specific gravity measu rementOrdered By: Sania Packer on 09-15-2022 Specific gravity (U) [Rel density] 1.010 1.002-1.030 [facility] Urobilinogen Auto test strip Ql (U)Ordered By: Sania Packer on 09-15-2022 Urobilinogen Ql (U) Normal mg/dl Normal [facility] Vital Signs Date Time Vital Sign Value Performing Clinician Faci lity 11-07-2024 14:12-0400 Body height 157.[address] Nestor Stephenson MD Work Phone: [facility] 11-07-2024 14:12-0400 Body mass index (BMI) [Ratio] 18.3 kg/m2 Dr. Nestor Stephenson MD Work Phone: 2(039)319-585766 [place] [address] 11-07-2024 14:12-0400 Body weight 45.[address] Nestor Stephenson MD Work Phone: 1(586)002-018385 [address] 09-15-2022 18:35-0400 Diastolic blood pressure 66 mm[Hg] Dr. Lauro Stephenson Work Phone: 0(156)[phone] [place] [address] 09-15-2022 18:35-0400 Heart rate 68 /min Dr. Lauro Stephenson Work Phone: 2(305)163-226566 [place] [address] 09-15-2022 18:35-0400 Respiratory rate 16 /min Dr. Lauro Stephenson Work Phone: 0(348)[phone] [place] [address] 09-15-2022 18:35-0400 SaO2% (BldA) [Mass fraction] 98 % Dr. Lauro Stephenson Work Phone: 6(383)018-175566 [place] [address] 09-15-2022 18:35-0400 Systolic blood pressure 118 mm[Hg] Dr. Lauro Stephenson Work Phone: [facility] 09-15-2022 16:14-0400 Body height 157.[address] Lauro Stephenson Work Phone: 5(685)475-352666 [place] [address] 09-15-2022 16:14-0400 Body mass index (BMI) [Percentile] Per age and sex 8.8 % Dr. Lauro Stephenson Work Phone: [facility] 09-15-2022 16:14-0400 Body mass index (BMI) [Ratio] 18.1 kg/m2 Dr. Lauro Stephenson Work Phone: 7(203)[phone] [place] [address] 09-15-2022 16:14-0400 Body temperature 98.3 [degF] Dr. Lauro Stephenson Work Phone: [facility] 09-15-2022 16:14-0400 Body weight 44.[address] Lauro Stephenson Work Phone: [facility] 05-31-2022 08:06-0400 Body mass index (BMI) [Percentile] Per age and sex 40.2 % Dr. Lauro Stephenson Work Phone: [facility] 05-31-2022 08:06-0400 Body mass index (BMI) [Ratio] 20.5 kg/m2 Dr. Lauro Stephenson Work Phone: [facility] 05-31-2022 08:06-0400 Body temperature 98.2 [degF] Dr. Lauro Stephenson Work Phone: [facility] 05-31-2022 08:06-0400 Body weight 50.[address] Lauro Stephenson Work Phone: [facility] 05-31-2022 08:06-0400 Diastolic blood pressure 58 mm[Hg] Dr. Lauro Stephenson Work Phone: [facility] 05-31-2022 08:06-0400 Heart rate 59 /min Dr. Lauro Stephenson Work Phone: [facility] 05-31-2022 08:06-0400 Respiratory rate 12 /min Dr. Lauro Stephenson Work Phone: [facility] 05-31-2022 08:06-0400 SaO2% (BldA) [Mass fraction] 98 % Dr. Lauro Stephenson Work Phone: [facility] 05-31-2022 08:06-0400 Systolic blood pressure 98 mm[Hg] Dr. Lauro Stephenson Work Phone: [facility] Encounters Encounter Date Encounter Type Care Provider Facility Start: 12-31-2024 ambulatory No Primary Car e Physician Facility:[facility] Start: 12-11-2024 End: 12-11-2024 ambulatory No Primary Care Physician Facility:[facility] Start: 12-05-2024 End: 12-05-2024 ambulatory Juventino Glass Facility:[facility] Start: 11-07-2024 End: 11-07-[address] Juventino Glass MD -[facility] Work Phone: Start: 11-07-2024 End: 11-07-[address] Nestor Stephenson MD Work Phone: -[facility] Start: 06-07-2023 End: 06-07-2023 ambulatory JAVAN MOYA [facility] Start: 05-29-2023 End: 06-01-2023 Evaluation and management of inpatient JAVAN MOYA [facility] Start: 05-08-2023 End: 05-08-2023 ambulatory KENNETH RANDHAWA [facility] Start: 05-07-2023 End: 05-08-2023 ambulatory KENNETH RANDHAWA [facility] Start: 04-17-2023 End: 04-17-2023 ambulatory NICK RANDHAWA [facility] Start: 04-09-2023 End: 04-09-2023 ambulatory KENNETH RANDHAWA [facility] Start: 03-05-2023 End: 03-05-2023 ambulatory NICK RANDHAWA [facility] Start: 02-28-2023 End: 02-28-2023 [address] [facility] Start: 02-27-2023 End: 02-28-2023 Emergency department patient visit TRAV HOANG [facility] Start: 02-26-2023 End: 02-26-2023 ambulatory NICK RANDHAWA [facility] Start: 02-12-2023 End: 02-13-2023 Emergency department patient visit AISHA DYE [facility] Start: 01-23-2023 End: 01-23-2023 ambulatory KENNETH RANDHAWA [facility] Start: 01-19-2023 End: 01-19-2023 ambulatory JULISSA DELIVERY SUPERVISOR DebbyNORMA [facility] Start: 01-10-2023 End: 01-10-2023 ambulatory KENNETH RANDHAWA [facility] Start: 12-13-2022 End: 12-14-2022 ambulatory NOT RECORDED PHYSICIAN Facility:B Start: 12-13-2022 End: 12-13-2022 Patient encounter procedure CAMRON ANDUJAR MD [facility] Start: 11-01-2022 End: 11-02-2022 ambulatory CAMRON ANDUJAR MD Facility:[facility] Start: 10-18-2022 End: 10-23-2022 ambulatory CAMRON ANDUJAR MD Facility:[facility] Start: 10-18-2022 End: 10-22-2022 Outreach Lab CAMRON ANDUJAR MD [facility] Start: 09-15-2022 End: 09-15-2022 Emergency department patient visit Dr. Lauro Stephenson Work Phone: [facility] Work Phone: Start: 05-31-2022 End: 05-31-[address] Lauro Stephenson Work Phone: [facility] Work Phone: Start: 02-24-2022 End: 02-24-2022 ambulatory [facility] Work Phone: Start: 02-24-2022 End: 02-24-2022 Patient encounter procedure [facility]-Cat Scan, [facility] Start: 01-24-2022 End: 01-24-2022 ambulatory [facility] Work Phone: Start: 01-24-2022 End: 01-24-2022 Patient encounter procedure [facility]-MRI - [facility] Procedures Date Procedure Procedure Detail Performing Clinician Start: 11-07-2024 Radiologic exam knee complete 4/more views Dr. Nestor Stephenson MD Work Phone: Start: 02-27-2023 Urinalysis KENNETH Malick ILLER Comment on above: Result Comment: URIN ALYSIS Performed By: #### 2 [id number] #### [facility],[address] [place] [address] Start: 02-26-2023 Urinalysis KENNETH Malick ILLER Comment on above: Result Comment: URIN ALYSIS Performed By: #### 2 [id number] #### [facility],[address] [place] [address] Start: 02-12-2023 Urinalysis KENNETH Teresa ILLER Comment on above: Result Comment: URIN ALYSIS Performed By: #### 2 [id number] #### [facility],[address] [place] [address] Start: 05-31-2022 Plain x-ray of hand Dr. Lauro Stephenson Work Phone: Start: 05-31-2022 Plain x-ray of wrist Dr Carolina Stephenson Work Phone: Start: 02-24-2022 MRI of lower extremity Start: 01-24-2022 MRI of lower extremity Start: 02-12-2007 Staphylococcal infec tious disease (disorder) CAMRON ANDUJAR MD Comment on above: unknown location of surgery Plan of Treatment Date Care Activity Detail Author MR Lower Extremity Joint [facility] Patient Education ED , New Dx ED Vomiting (Adult) [facility] Work Phone: Patient referral [facility] Work Phone: Payers Date Payer Category Payer Unknown [id number] 2022 Self-pay [id number] 2018 Unknown [id number] 2004 Unknown [id number] 2.16.8 40.1.057273.3.579.2.627 2004 Unknown [id number] 2.16.8 40.1.536513.3.579.2.627 2004 Unknown [id number] 2.16.8 40.1.868126.3.579.2.627 2004 Unknown [id number] 2.16.8 40.1.004437.3.579.2.651 2004 Unknown [id number] 2.16.8 40.1.687422.3.579.2.651 2004 Unknown [id number] 2.16.8 40.1.094791.3.579.2.651 2004 Unknown [id number] 2.16.8 40.1.626427.3.579.2.651 2004 Unknown [id number] 2.16.8 40.1.561620.3.579.2.651 2004 Unknown [id number] 2.16.8 40.1.301569.3.579.2.651 2004 Unknown [id number] 2.16.8 40.1.823952.3.579.2.651 2004 Unknown [id number] 2.16.8 40.1.080936.3.579.2.651 2004 Unknown [id number] 2.16.8 40.1.844471.3.579.2.65 2004 Unknown [id number] 2.16.8 40.1.965252.3.579.2.65 2004 Unknown [id number] 2.16.8 40.1.235651.3.579.2.65 2004 Unknown [id number] 2.16.8 40.1.938457.3.579.2.651 2004 Unknown [id number] 2.16.8 40.1.412573.3.579.2.65 2004 Unknown [id number] 2.16.8 40.1.067971.3.579.2.651 2004 Unknown [id number] 2.16.8 40.1.938406.3.579.2.651 Unknown [id number] 2.16.8 40.1.429563.3.579.2.462 Unknown [id number] 2.16.8 40.1.984627.3.579.2.462 Unknown [id number] 2.16.8 40.1.485445.3.579.2.462 Unknown [id number] 2.16.8 40.1.648990.3.579.2.462 Unknown [id number] 2.16.8 40.1.679892.3.579.2.462 Social History Date Type Detail Facility Tobacco smoking status NHIS Unknown if ever smoked [facility] Work Phone: Start: 2005 Sex Assigned At Female [facility] Start: 09-15-2022 Tobacco smoking status NHIS Unknown if ever smoked [facility] Tobacco Nicotine Use: Va ping Product in Last 90 Days. [facility] Tobacco smoking status No Smoking Status Entered [facility] Start: 09-15-2022 Tobacco smoking status NHIS Never smoked tobacco (finding) [facility] Sex Female [facility] NEGATED: Highlighted row [facility] Clinical Notes 01-22-2023 to 11-07-2024 Note Date & Type Note Facility 11-07-2024 Progress note [facility] 11-07-2024 Radiology Diagnostic study note [facility] Imaging Services [address] [place], [place] [address] Knee 4 or More Views MR#: [id number] Acct: [id number] Name: LATOYA SOTELO Rep #: [id number] : 2005 F 19 From: Panchito Perrin DO PCP: Dr. Nestor Stephenson MD Status: DEP AMB Study:Knee 4 or More Views Date of Exam: 11/07/24 Exam# [id number] Ordering Dr: Juventino Glass MD PROCEDURE: KNEE 4 OR MORE VIEWS 11/07/2024 REASON FOR EXAM: ON GOING MEDIAL KNEE PAIN TECHNIQUE: Procedure Code: RADKN Modality: DX Procedure: KNEE 4 OR MORE VIEWS Laterality: Left COMPARISON: None FINDINGS: Bones: There is normal bone mineralization of the osseous structures of the leftknee. There are no fractures or dislocations. Joints: Knee joints are well preserved. Effusion: No effusion. Soft tissues: Soft tissues are unremarkable. RAD/Knee 4 or More Views IMPRESSION: Unremarkable left knee study. Reading Location: [id number] CC: Dr. Nestor Stephenson MD; Dr. 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 Arnaud Glass MD Age/Sex: 19/F Location: [facility] Status: Signed Intake Vital Signs 09/15/22 16:14 11/07/24 14:12 Height 5 ft 2 in 5 ft 2 in Weight: 100 lb BMI 18.3 Intake Visit Reasons: LEFT KNEE Chief Complaint: Left knee pain Accompanied by: Self Is patient in pain?: Yes Pain scale (1-10): 3 Allergies No Known Allergies Allergy (Verified 11/07/24 14:16) Medications ?Medication ?Instructions ?Recorded ?Confirmed ?Type NK 11/07/24 11/07/24 History Have you fallen in the past year?: Yes [facility] Medical History Left knee pain Contusion of left wrist Contusion of left hand Staph infection Social History Smoking Status: Never smoker alcohol intake: never HPI LEFT KNEE Details: This documentation accurately reflects the service provided and the decisions made by me, Dr. Juventino Glass MD 11/07/24 1140. Part of today?s visit was documented by [ ], acting as scribe. LATOYA SOTELO is a 19 year old F here today for L knee pain. NEED XR. slammed into a wall 5 years ago. intermittent locking. has to twist knee to get it unlocked. getting worse. has loose joints, flat feet. feels like PF instability, but never had a PF dislocation. 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 hurts every where, mostly medial. no surgery, injections, PT or brace. Supplemental Info L knee xr 4 view - joint spaces well maintained, nil acute. Coding Level of Care Code Off vis,new,level 4 Diagnoses Left knee pain M25.562 Assessment and Plan Assessment and Plan (1) Left knee pain: Status: Acute Plan: LATOYA SOTELO is a 19 year old F here today for L knee pain. This followed a traumatic injury and the patient has had subsequent many years of locking symptoms describes trying to get her knee unlocked when that happens and has a very definitive click with Toyin's testing on the medial side of the knee with positive medial joint line tenderness . I am quite concerned for a unstablemedial meniscus tear. I will go ahead and order MRI of the knee recommend rest ice anti-inflammatories no pivoting or twisting on the knee until then and follow-up once the patient gets the test. They understood no further questions or concerns. Orders: Orders Knee 4 or More Views Today M25.562 - Pain in left knee Lower Ext Joint Only (Routine) Today M25.562 - Pain in left knee Medications: Discontinued ondansetron Discontinued Reason: Pt no longer taking 4 mg PO Q8H PRN PRN 20 tabs 0RF Nausea Clinical Quality Measures Falls Risk Screening/Assistive Devices Have you fallen in the past year?: Yes Ortho Exam General General: Yes no acute distress Neurologic: Yes alert and Yes oriented x3 Psychologic: Yes reasonable and appropriate Right Knee Patella Translation: 2 Left Knee Skin/Wound: Yes CDI, No ecchymosis, No erythema and No swelling Knee ROM: Yes ROM-Flexion 0-140 Examination: Yes med jt line tenderness, No Lat jt line tenderness, No TTP inf pole patella, No Crepitus, Yes Pain with flexion, Yes Toyin's Test, No TTP Patellar tendon, No TTP Tibial tubercle, No TTP Pes Anserine and No Illiotibial band tenderness Quad Atrophy: No Stability: NML: Anterior Drawer, NML: Kirsten, NML: Posterior Drawer, NML: Valgus 0, NML: Valgus 30, NML: Varus 0 and NML: Varus 30 Apprehension with Lateral Translation: No Patella Translation: 2 Patellar Tilt Normal: Yes Patella Grind: No KNEE: normal gait, NVI, normal alignment, very definite click on medial side with mcmurrays test. 11/07/24 1446 <Electronically signed by Juventino gaytan MD> Date _ Juventino Glass MD Cosigner Signature: Date (if applicable) CC: ~ [email or web address] Work Phone: 1(179) 293-836401-20-2024 Note. MICRO - Microbiology PROCEDURE: Blood Culture (bacterial) [*1] SOURCE: Blood BODY SITE: COLLECTED DATE/TIME: 02/26/2023 09:10 EST RECEIVED DATE/TIME: 02/26/2023 14:20 EST START DATE/TIME: 02/26/2023 14:21 EST FREE TEXT SOURCE: FINAL REPORTS Final Report [] Verified Date/Time/Personnel: 03/03/2023 14:59 EST Blood Culture: No Growth at 5 days. PRELIMINARY REPORTS Preliminary Report [] Verified Date/Time/Personnel: 02/26/2023 14:59 EST Culture has been received in lab and is no growth to date. Routine cultures are held for 5 days. Performing Locations *1: This test was performed at: [address], [facility] , [facility] ([place])02-28-2023 Note. MICRO - Microbiology PROCEDURE: Culture Beta Strep Only [*1] SOURCE: Throat BODY SITE: COLLECTED DATE/TIME: 02/26/2023 09:10 EST RECEIVED DATE/TIME: 02/26/2023 13:32 EST START DATE/TIME: 02/26/2023 13:33 EST FREE TEXT SOURCE: FINAL REPORTS Final Report [] Verified Date/Time/Personnel: 02/28/2023 07:17 EST No Beta Strep isolated at 48hrs. PRELIMINARY REPORTS Preliminary Report [] Verified Date/Time/Personnel: 02/27/2023 10:55 EST No beta Strep isolated at 24 hours. Performing Locations *1: This test was performed at: [address], [facility] , [facility] ([place])01-22-2023 Note. MICRO - Microbiology PROCEDURE: Affirm Pathogens DNA Direct Probe [*1] SOURCE: Vaginal Fluid BODY SITE: Vagina COLLECTED DATE/TIME: 01/19/2023 08:02 EST RECEIVED DATE/TIME: 01/22/2023 07:59 EST START DATE/TIME: 01/22/2023 07:59 EST FREE TEXT SOURCE: FINAL REPORTS Final Report [] Verified Date/Time/Personnel: 01/22/2023 09:59 EST Gardnerella vaginalis DNA Probe Positive Trichomonas vaginalis DNA Probe Negative Teresita species DNA Probe Negative Performing Locations *1: This test was performed at: [address], [address] [place] [address] ([place])Evaluation + Plan note Future Appointments Appointment Date:11/15/2022 02:30:00 PM Scheduled Provider:CAMRON ANDUJAR MD Location:[facility] Appointment Type: OV OB Routine Follow Up Future Scheduled Tests Laboratory* Antibody Screen Gel 10/18/22 * ABO/Rh Gel 10/18/22 * Hepatitis B Surface Antigen 10/18/22 * Rapid Plasma Reagin Test 10/18/22 * Rubella Antibody 10/18/22 * Complete Blood Count 10/18/22 * Hepatitis C Antibody IgG 10/18/22 * HIV 1/2 Ab 10/18/22 * MISC Lab Send out (Blood Specimens) 10/18/22 * MISC Lab Send out (Blood Specimens) 10/18/22 * MISC Lab Send out (Blood Specimens) 10/18/22 [facility] Evaluation + Plan note Future Appointments Appointment Date:12/20/2022 04:00:00 PM Scheduled Provider:MARILEE MCLAUGHLIN Location:[facility] Appointment Type: OV OB Routine Follow Up Future Scheduled Tests Laboratory* MISC Lab Send out (Blood Specimens) 10/18/22 * MISC Lab Send out (Blood Specimens) 10/18/22 * MISC Lab Send out (Blood Specimens) 10/18/22 Radiology* US OB > 14 weeks 12/13/22 [facility] Evaluation noteNo assessment information available [facility] Work Phone: Evaluation note* Diagnosis Onset Date Resolution Status Contusion of left hand acute Contusion of left wrist acut e [facility] Work Phone: Evaluznywp note* Diagnosis Onset Date Resolution Status Admit Date Left knee pain acute November 07, 2024 2:11pm [facility] Work Phone: Hospital course Narrative No data available for this section [facility] Hospital Discharge instructions No data available for this section [facility] Progress note No data available for this section [facility] Reason for referral (narrative)No reason for referral [facility] Work Phone: Chief Complaint and Reason for Visit Chief Complaint FOOT PAIN LEFT Chief Complaint FOOT PAIN LEFT OSTEOARTHRITIS Chief Complaint LEFT HAND INJURY XRAY GENERAL ILLNESS Reason for Visit Contusion of left bergman nd Contusion of left wrist Chief Complaint Admit Date LEFT KNEE November 07, 2024 2:11pm Room 1 November 07, 2024 2:17pm Reason for Visit Admit Date Left knee pain November 07, 2024 2:11pm Advance Directives No Advanced Directives Records Found Advance Directive Response Recorded Date/ Time Living Will No September 15, 2022 4:45pm Power of Consumer Educator No September 15 4:45pm Summary Purpose Family History No Family History Records Found Additional Source Comments Goals (unrecognized section and content) Goals may be documented in a n alternate sectionGoals may be documented in an alternate sectionGoals may be documented in an alternate section No data available for this section No data available for this sectionGoals may be documented in an alternate sectionGoals may be documented in an alternate section Care Teams (unrecognized sec tion and content) Team Status: Active Member Role Status Dates Dr. Lauro Stephenson MD Family Provider Active Dr. Lauro Stephenson MD Primary Care Provider Activ e Team Status: Inactive Member Role Status Dates Dr. Lauro Stephenson MD Primary Care Provider, Attending Provider, Referring Provider Active Team Status: Inactive Member Role Status Dates Dr. Lauro Stephenson MD Primary Care Provider Activ e Dr. Zeke Costello DPM Attending Provider Active Team Status: Inactive Member Role Status Dates Dr. Lauro Stephenson MD Primary Care Provider, [facility] Provider Active Jonatan Perdue PA, PA Attending Provider Active Team Status: Inactive Member Role Status Dates Dr. Lauro Stephenson MD Primary Care Provider Activ e Dr. Gorge Nielsen MD Attending Provider Active Team Status: Inactive Member Role Status Dates Dr. Lauro Stephenson MD Primary Care Provider Activ e Dr. Sania Packer MD Emergency Provider Active Team Status: Active Member Role/Relationship Status Dates Dr. Nestor Stephenson MD Primary care physician Act linden Team Status: Inactive Member Role/Relationship Status Dates Dr. Nestor Stephenson MD Primary care physician Act linden Start: November 07, 2024 End: November 07, 2024 Dr. Nestor Stephenson MD Referring Provider Active Start: November 07, 2024 End: November 07, 2024 Juventino Glass MD Attending physician Active S tart: November 07, 2024 End: November 07, 2024 Team Status: Inactive Member Role/Relationship Status Dates Dr. Nestor Stephenson MD Primary care physician Act linden Start: November 07, 2024 End: November 07, 2024 Dr. Gorge Nielsen MD Attending physician Active Start: November 07, 2024 End: November 07, 2024 INFORMATION SOURCE (unrecogn ized section and content) DATE CREATED AUTHOR 04/20/2023 [facility] ([place]) DATE CREATED AUTHOR AUTHOR'S ORGANIZ ATION 06/09/2023 [facility] DATE CREATED AUTHOR AUTHOR'S ORGANIZ ATION 12/17/2024 [facility] FOR RECORDS PERTAINING TO PATIENTS WHO ARE OR HAVE BEEN ENROLLED IN A CHEMICAL DEPENDENCY/SUBSTANCEABUSE PROGRAM, SOME INFORMATION MAY BE OMITTED. This clinical summary was aggregated from multiple sources. Caution should be exercised in using it in the provision of clinical care. This summary normalizes information from multiple sources, and as a consequence, information in this document may materially change the coding, format and clinical context of patient data. In addition, data may be omitted in some cases. CLINICAL DECISIONS SHOULD BE BASED ON THE PRIMARY CLINICAL RECORDS. [employer] provides no warranty or guarantee of the accuracy or completeness of information in this document.
--- NOTE | 2024-12-31 12:18 | HP.PCM_ITS ---
HPI - General HPI Narrative LATOYA SOTELO, is a 19 F who presents for left knee arthroscopy, medial meniscus repair. No changes to history and physical exam. Risks alternatives benefits as well as postoperative instructions and narcotic counseling given. Left knee marked. Patient understands wishes to proceed no further questions. MR#: [id number] Acct: [id number] Name: LATOYA SOTELO Rep #: [id number] : 2005 Provider: Dr. Juventino Glass MD Age/Sex: 19/F [place] [facility] Status: Signed Intake Vital Signs 11/07/2513:12 12/11/2514:41 Height 5 ft 2 in 5 ft 2 in Weight: 100 lb 100 lb BMI 18.3 18.3 Intake Visit Reasons: LEFT KNEE Chief Complaint: Left knee MRI review Accompanied by: Self Is patient in pain?: Yes Pain scale (1-10): 3 Allergies No Known Allergies Allergy (Verified 12/11/24 15:44) Medications ?Medication ?Instructions ?Recorded ?Confirmed ?Type NK 11/07/24 12/11/24 History Have you fallen in the past year?: No PFSH Medical History Tear of medial meniscus of left knee Left knee pain Contusion of left wrist Contusion of left hand Staph infection Social History Smoking Status: Never smoker alcohol intake: never HPI LEFT KNEE Details: This documentation accurately reflects the service provided and the decisions made by me, Dr. Juventino Glass MD 12/11/24 4093. Part of today?s visit was documented by [ ], acting as scribe. LATOYA SOTELO is a 19 year old F here today for FU L knee MRI. Patient had an injury a little over 2 years ago and has had persistent catching and locking since rations and has to move the knee around to get it unlocked now at least for 2 years. Tried a home-based exercise regime for months at a time but this is not getting any better. The pain is located on the medial side of the knee. Supplemental Info [facility] Imaging Services [address] [place], [place] [address] [address] Lower Ext Joint Only (Routine) MR#: [id number] Acct: [id number] Name: LATOYA SOTELO Rep #: [id number] : 2005 F 19 From: Georgiana Dumont MD PCP: Care Physician,No Primary Status: REG CLI Study: Lower Ext Joint Only (Routine) Date of Exam: 12/05/24 Exam# [id number] Ordering Dr: Juventino Glass MD PROCEDURE: LOWER EXT JOINT ONLY (ROUTINE) 12/05/2024 REASON FOR EXAM: EVAL FOR MEDIAL MENISCUS TEAR TECHNIQUE: Procedure Code: MRILEJ Modality: MR Procedure: LOWER EXT JOINT ONLY (ROUTINE) Multiplanar and multisequence images were obtained without IV contrast administr ation. COMPARISON: 07-Nov-2024 CR FINDINGS: The posterior horn of the medial meniscus shows linear high signal reaching its meniscocapsular attachment and not interrupting the articular surfaces. Intact lateral meniscus. The anterior and posterior cruciate ligaments are intact. The medial and lateral collateral ligaments are intact. Intact quadriceps and patellar tendons. The medial and lateral patellar retinaculi are intact. Minimal knee joint effusion. Pes anserinus bursa is noted. Normal MR appearance of the rest of the keya-articular musculature with preserved inter-muscular fat planes. No fractures or marrow edema/contusion. No marrow infiltrative lesions. MRI/Lower Ext Joint Only (Routine) IMPRESSION: Grade II signal of the posterior horn of the medial meniscus. Minimal knee joint effusion. Pes anserinus bursa is noted. Reading Location: [place] [address] I independently reviewed the imaging. Concur with radiologist report. Coding Level of Care Code Off vis,est,level 4 Diagnoses Left knee pain M25.562 Tear of medial meniscus of left knee S83.242A Assessment and Plan Assessment and Plan (1) Left knee pain: Status: Acute Plan: 19 yr F with L knee MRI showing grade II signal of the posterior horn indicating a tear of the medial meniscus. I explained the diagnosis prognosis different treatment options including ongoing conservative management bracing rest ice anti-inflammatories protected range of motion for 6 weeks as well as surgical management for knee arthroscopy repair of the medial meniscus tear. The patient has had persistent mechanical symptoms medial sided knee pain positive physical exam findings and failed home-based therapy regime now for over 2 months. Overall my recommendation here would be to fix the tear given the patient's young age desire to protect the meniscus decrease the chance of further tearing or residential risk of OA, and other problems about the knee. They understood wished to go ahead with surgery in the form of a left knee arthroscopy, medial meniscus repair Pros and cons risks and benefits were discussed with the patient including but not limited to infection, pain, stiffness, bleeding, damage to surrounding structures, neurovascular injury, recurrence or retear, failure or wear of hardware or fixation, instability, fracture, deep vein thrombosis and pulmonary embolism, anesthetic risks, , patient dissatisfaction, need for further surgery and other risks. Patient understood and wished to proceed with surgery, and signed the informed consent documentation. (2) Tear of medial meniscus of left knee: Status: Acute Clinical Quality Measures Falls Risk Screening/Assistive Devices Have you fallen in the past year?: No Ortho Exam General General: Yes no acute distress Neurologic: Yes alert and Yes oriented x3 Psychologic: Yes reasonable and appropriate [facility] Medical History (Updated 12/31/24 @ 10:[address] Gus Beth MD) Vaginal delivery hemorrhage Wears glasses Smoker Marijuana use Anemia History of Holter monitoring Tear of medial meniscus of left knee Left knee pain Contusion of left wrist Contusion of left hand Staph infection Home Medications ?Medication ?Instructions ?Recorded ?Last Taken ?Type NK 11/07/24 Unknown History Allergy/AdvReac Type Severity Reaction Status Date / Time No Known Allergies Allergy Verified 12/31/24 10:31 Social History Smoking Status: Current every day smoker tobacco type: e-cigarettes alcohol intake: never Vital Signs Vital Signs Vital Signs: 12/31/24 10:31 12/31/24 10:31 12/31/24 10:31 Temperature 97.7 F L Temperature Source Temporal Pulse Rate 73 Respiratory Rate 12 Respiratory Pattern Normal Blood Pressure 119/77 Blood Pressure Mean 91 Blood Pressure Source Monitor Blood Pressure Position Semi-Fowlers Blood Pressure Location Left Arm Baseline BP 119/77 Pulse Ox 99 Oxygen Delivery Method Room Air 12/31/24 10:54 Temperature 97.7 F L Temperature Source Pulse Rate 73 Respiratory Rate 12 Respiratory Pattern Blood Pressure 119/77 Blood Pressure Mean Blood Pressure Source Blood Pressure Position Blood Pressure Location Baseline BP Pulse Ox 99 Oxygen Delivery Method Room Air Weight Weight: 101 lb 6.602 oz Body Mass Index (BMI) 18.5 Results Lab / Micro Data Labs: Laboratory Results - last 24 hr 12/31/24 10:18: Urine Test Negative
[2024-12-31] MEDS: Midazolam 2 MG/2 ML Syringe IV (13:03)
[2024-12-31] MEDS: Cefazolin 1 GM/5 ML Vial 2 GM IV (13:03)
[2024-12-31] MEDS: Lidocaine 1% (5 ml sdv) 5 ML Vial 6 ML IV (13:08)
[2024-12-31] MEDS: fentaNYL 100 MCG/2 ML Ampul IV (13:15)
[2024-12-31] MEDS: Epinephrine (1 mg/ml) 1 MG/ML VIAL (13:30)
--- NOTE | 2024-12-31 13:57 | DCINST_ITS ---
Discharge Instructions Diet Discharge Diet: No restrictions Activity Discharge Activity: Use Crutches Ice area for (Minutes): 10 Weight Bearing Status: Weight bearing as tolerated Lifting Restrictions: WBAT with leg straight, brace locked at 0 degrees Keep extremity elevated above heart level: Operative Extremity Additional Activity Instructions:: ok for PT to do passive ROM 0-90, ok to remove brace at rest Dressing / Incision Call your doctor if your incision/area has: Continuous Slow Oozing, Sudden In creased Bleeding, Increased Pain/ Swelling, Increased Redness, Foul Smelling Discharge and Swelling at the incision site Call your doctor if you observe: Fever of 101 or Higher, Coldness, Increased Pain and Numbness or Tingling Change Dressing in: leave in place till F/U Cleanse incision/area with: Do not get Incision Wet Follow Up Care Please Follow Up With: Juventino Glass MD When: within 2 weeks Test Results: Test results from this visit will be discussed in further detail at your follow- up appointment, if applicable. Discharge Plan Admission Attending Provider: Juventino Glass Primary Care Provider: Care Physician,No Primary Instructions Patient Instructions: Surgery for Meniscus Tear Print Language: Latvian Discharge Orders/Prescriptions Prescriptions: New oxycodone-acetaminophen [Endocet] 5-325 mg tablet 1 tab PO Q4H MDD 6 PRN (Reason: pain) 3 Days Qty: 20 0RF Referrals / Follow Up: Juventino Glass MD [Med Staff - Active Staff, Orthopedics] Care Physician,No Primary [Primary Care Provider, Medical] Disposition Disposition (needs filled in before D/C Order can be placed): Home, Self Care
[2024-12-31] MEDS: dexMEDEtomidine 200 MCG/2 ML ML 8 MCG IV (13:58)
--- NOTE | 2024-12-31 14:00 | OP.PCM_ITS ---
Procedures Musculoskeletal 20xxx-29xxx: Other Procedure See Report Operative Report (Standard) Operative Information Date of Procedure: 12/31/24 Pre-Operative Diagnosis: Left knee medial meniscus tear Post-Operative Diagnosis: Same Surgery/Procedure Performed: Left knee arthroscopy removal of plica and medial meniscus repair java grails developer: Yes Fur Matcher: Ingrid Tasks completed by certified surgical tech/first assistant: Retracting Additional events administrative assistant?: No Type of Anesthesia: General and Local RN Documented Start/Stop Times: Operation Date: 12/31/24 11:30 Case Time Into Pre-Op 12/31/24 10:29 Out of Pre-Op 12/31/24 13:02 Anesthesia Start 12/31/24 13:03 Into Room 12/31/24 13:03 Procedure Start 12/31/24 13:21 Procedure End 12/31/24 13:58 Procedure Start Time: 13:21 Procedure Stop Time: 13:58 Select all DRAINS/GRAFTS/IMPLANTS that apply: Implanted device Implanted device details: arthrex 1.5mm need 2-0 suture all inside fibertak meniscus repair device x4 Estimated Blood Loss: 10 Specimen collected: No Description of surgery: Patient brought to the operating room theater. Placed supine on the table. General anesthesia induced. 2 g IV Ancef administered prior to the start of the case. SCDs on the right lower extremity. Left thigh tourniquet applied appropriately padded. Stress positioner to the patient's left side. Lower extremity prepped and draped in the usual sterile fashion with chlorhexidine- based prep solution allowing over 3 minutes drying time prior to draping. P reoperative timeout performed to confirm the site patient and the surgery. Began by elevating the limb inflating the tourniquet to 250 mmHg. The standard anterolateral and anteromedial portal. Did a full diagnostic arthroscopy. There was a prepatellar plica. I removed this debrided that completely excised it. Did the rest of the diagnostic arthroscopy. Other than that the cartilage at the patellofemoral as well as the medial and lateral compartments were normal. ACL and PCL was normal. No loose bodies. Lateral meniscus was stable and solid to probing to the Gillquist view no ramp tear. Normal gutters. Ligamentum mucosum removed. Then looked at the posterior horn medial meniscus. Vertical under surface tear, grade 2, at the posterior horn. I used a rasp to stimulate healing there. Used arthrex power pick at the notch multiple trephinations to stimulate marrow for healing. I then used 4 Arthrex fiber stitch 1.5 all inside meniscus repair devices in a vertical mattress fashion to repair the meniscus back to the capsule this was stable and solid to probing good repair. Arthroscopy pictures taken and saved throughout the case onto the system. Tourniquet let down and hemostasis achieved wounds thoroughly irrigated. Portal sites closed with 3-0 Monocryl sutures. Used LA 10cc 0.25 percent bupicivaine. Skin cleaned with wet and dry dressing followed application of Steri-Strips 4 x 4 gauze ABD dressing loosely wrapped Daniel bandage and then a hinged knee brace locked in full extension. Patient woken up from a general anesthetic transferred off the operating table t [facility] to postanesthetic care unit in stable condition. All sponge needle instrument counts were correct no complications plan for the patient weightbearing as tolerated in full extension passive range of motion 0 to 90 degrees for the first 6 weeks of physical therapy only and we decided no VTE prophylaxis. Patient young healthy with only vaping as risk factor, no hormones, or personal or family hx of VTE. Discharge home according to day surgery criteria follow-up the office in 2 days time. CPT 36911, 94299 Surgical Findings: as above Complications Complications: No Admit VTE Documentation VTE Present on Admission: No VTE Mechan Device Prophylaxis: SCD's VTE Pharm Prophylaxis ordered?: No
--- NOTE | 2024-12-31 14:16 | PCM.POST.ANE ---
Anesthesia: Postop Eval I Current Vital Signs Temperature: 98.3 F Pulse Rate: 68 Blood Pressure: 107/58 Respiratory Rate: 16 Pulse Ox: 98 Assessment Airway patent: Yes Spontaneous unlabored respirations: Yes nausea: No Vomiting: No Anesthesia Complication: No Fluid Hydration Crystalloid volume administer (ml): 800 Total IV fluid infused: 800 Progress Note Anesthesia document: Postop Eval 1 completed: Yes
[2024-12-31] MEDS: HYDROcodone Bitartrate/Apap 5/325 Tablet PO (15:39)
--- NOTE | 2024-12-31 16:45 | POSTOPAN2_ITS ---
Anesthesia Postop Eval I Sum Postop Eval Completion status Anesthesia document: Postop Eval 1 completed: Yes Anesthesia Postop Eval I Summary Anesthesia Postop Eval I Summary: Anesthesia Postop Eval I: Assessment Summary Airway patent Yes 12/31/24 14:16 ANNEALING TORCH OPERATOR.[email or web address] Spontaneous unlabored Yes 12/31/24 14:16 ANNEALING TORCH OPERATOR.TNES respirations Mental status nausea No 12/31/24 14:16 ANNEALING TORCH OPERATOR.TNES Vomiting No 12/31/24 14:16 ANNEALING TORCH OPERATOR.TNES Anesthesia Postop Eval I: Fluid Summary Crystalloid volume administer 800 12/31/24 14:16 ANNEALING TORCH OPERATOR.TNES (ml) Colloids volume administered ( ml) Blood Product volume administered (ml) Total IV fluid infused 800 12/31/24 14:16 ANNEALING TORCH OPERATOR.TNES Anesthesia Postop Eval I: Summary Notes Anesthesia Complication No 12/31/24 14:16 ANNEALING TORCH OPERATOR.TNES Anesthesia Complication Comment: Post-operative progress note Anesthesia: Postop Eval II Evaluation Mental status: Awake and Calm Pain Level: 1 nausea: No Vomiting: No
--- NOTE | 2024-12-31 16:45 | PCM.POSTANE2 ---
Anesthesia Postop Eval I Sum Postop Eval Completion status Anesthesia document: Postop Eval 1 completed: Yes Anesthesia Postop Eval I Summary Anesthesia Postop Eval I Summary: Anesthesia Postop Eval I: Assessment Summary Airway patent Yes 12/31/24 14:16 [email or web address] Spontaneous unlabored Yes 12/31/24 14:16 [email or web address] respirations Mental status nausea No 12/31/24 14:16 [email or web address] Vomiting No 12/31/24 14:16 [email or web address] Anesthesia Postop Eval I: Fluid Summary Crystalloid volume administer 800 12/31/24 14:16 [email or web address] (ml) Colloids volume administered ( ml) Blood Product volume administered (ml) Total IV fluid infused 800 12/31/24 14:16 [email or web address] Anesthesia Postop Eval I: Summary Notes Anesthesia Complication No 12/31/24 14:16 [email or web address] Anesthesia Complication Comment: Post-operative progress note Anesthesia: Postop Eval II Evaluation Mental status: Awake and Calm Pain Level: 1 nausea: No Vomiting: No
== END 2024-12-31 15:53 | disposition home or self-care (01) ==
LOC: SDC 10:12 → AC 10:13
PROVIDERS: Anesthesiology; Referring Provider Orthopaedic Surgery Sports Medicine; Visit Provider Orthopaedic Surgery Sports Medicine
PROC: (CPT 29870; principal; 2024-12-31 11:10)
DX: S83.242A Other tear of medial meniscus, current injury, left knee, initial encounter (principal); X58.XXXA Exposure to other specified factors, initial encounter; F17.290 Nicotine dependence, other tobacco product, uncomplicated
CPT/HCPCS: 29882; 01400; 81025; C1713; J2405